=== PATIENT | female | born 1925 | race Caucasian/White ===

== ENCOUNTER 2016-07-09 12:42 | Inpatient (IN) | payer MEDICARE ==
[~2016-07-09] VITALS: Ht 152.4 cm; Wt 54.5 kg
[~2016-07-09 12:42] MED LIST: ASCO500T PO; CALC500T50 PO; DULO60CA44 PO; LEVO50TA PO; MULT-18 PO; RANI150T6 PO
--- NOTE | 2016-07-09 13:20 | RAD ---
Portable chest, 07/09/2016: History: Shortness of breath The heart size and pulmonary vascularity are normal. There is a calcified granuloma in the right lower chest. No acute infiltrates are seen. There is no evidence of pleural fluid. IMPRESSION: No acute cardiopulmonary abnormality is detected.
[2016-07-09 13:49] LABS: BASO % 1 % (0-3); EOS % 2 % (0-3); HEMATOCRIT 34.7 % (36.0-47.0); LYMPH # 1.1 x10^3/uL (1.0-4.8); LYMPH % 26 % (24-48); MEAN CORPUSCULAR HEMOGLOBIN 28 pg (25-35); MEAN CORPUSCULAR HGB CONC 32 g/dL (31-37); MEAN CORPUSCULAR VOLUME 87 fL (79-100); MONO % 7 % (0-9); NEUT % 65 % (31-73); PLATELET COUNT 335 x10^3/uL (140-400); RED BLOOD COUNT 3.98 x10^6/uL (3.50-5.40); RED CELL DISTRIBUTION WIDTH 17.3 % (11.5-14.5); WHITE BLOOD COUNT 4.3 x10^3/uL (4.0-11.0)
[2016-07-09 14:00] LABS: CALCIUM 9.6 mg/dL (8.5-10.1); CREATININE 0.7 mg/dL (0.6-1.0); POTASSIUM 3.7 mmol/L (3.5-5.1)
--- NOTE | 2016-07-09 14:14 | EKG ---
[facility] [address] [place] [address] Test Date: 2016-07-09 Test Time: 13:27:06 Pat Name: ALEX GIL Department: Room: Gender: F Employee Counselor: : [id number] Requested By: NIVIA BRUCE Order Number: [id number] Reading MD: George Guzman Measurements Intervals [place] Rate: 66 P: 52 IN: 180 QRS: -26 QRSD: 114 T: 7 QT: 434 QTc: 457 Interpretive Statements SINUS RHYTHM LEFTWARD AXIS R-S TRANSITION ZONE IN V LEADS DISPLACED TO THE RIGHT QRS(T) CONTOUR ABNORMALITY CONSIDER INFERIOR MYOCARDIAL DAMAGE T ABNORMALITY IN ANTEROSEPTAL LEADS RI6.01 Unconfirmed report No previous ECG available for comparison Electronically Signed On 07-12-2016 13:58:19 PRINT PRODUCER by George Guzman
[2016-07-09] MEDS ORDERED: ACETAMINOPHEN 325 MG TABLET. PO PRN (15:00)
--- NOTE | 2016-07-09 15:00 | PHYS DOC ---
Past Medical History Past Medical History: Hypothyroid Past Surgical History: Other Additional Past Surgical Histo: breast augmentation, colon surgery Alcohol Use: Occasionally Drug Use: None Adult General Chief Complaint Chief Complaint: SHORTNESS OF BREATH HPI HPI 89-year-old female who states she awoke today with some difficulty taking a deep breath but no significant chest pain or shortness of breath. She states she went about her usual activities today without significant difficulty but still has trouble taking a full breath. She states she has history only of hypothyroidism and denies any significant cardiac disease. Patient speaking in complete sentences and in no acute distress satting near 100% on room air. She denies any chest pain whatsoever. She denies any history of blood clots. She denies any history of travel. Review of Systems Review of Systems Constitutional: Denies fever or chills [] Eyes: Denies change in visual acuity, redness, or eye pain [] HENT: Denies nasal congestion or sore throat [] Respiratory: Denies cough, has shortness of breath [] Cardiovascular: No additional information not addressed in HPI [] GI: Denies abdominal pain, nausea, vomiting, bloody stools or diarrhea [] : Denies dysuria or hematuria [] Musculoskeletal: Denies back pain or joint pain [] Integument: Denies rash or skin lesions [] Neurologic: Denies headache, focal weakness or sensory changes [] Endocrine: Denies polyuria or polydipsia [] Current Medications Current Medications Current Medications Medications (Trade) Dose Ordered Sig/Teresa Start Time Stop Time Status Last Admin Dose Admin Acetaminophen (Tylenol) 650 mg PRN Q4HRS PRN 07/09/16 15:00 07/10/16 14:59 Ondansetron HCl (Zofran) 4 mg PRN Q8HRS PRN 07/09/16 15:00 07/10/16 14:59 07/09/16 15:20 4 MG Allergies Allergies Allergies Coded Allergies Type Severity Reaction Last Updated Verified Penicillins Allergy Severe Anaphylaxis 03/17/15 Yes codeine Allergy Severe Anaphylaxis 03/17/15 Yes Physical Exam Physical Exam Constitutional: Well developed, well nourished, no acute distress, non-toxic appearance. [] HENT: Normocephalic, atraumatic, bilateral external ears normal, oropharynx moist, no oral exudates, nose normal. [] Eyes: PERRLA, EOMI, conjunctiva normal, no discharge. [] Neck: Normal range of motion, no tenderness, supple, no stridor. [] Cardiovascular:Heart rate regular rhythm, no murmur [] Lungs & Thorax: Bilateral breath sounds clear to auscultation [] Abdomen: Bowel sounds normal, soft, no tenderness, no masses, no pulsatile masses. [] Skin: Warm, dry, no erythema, no rash. [] Back: No tenderness, no CVA tenderness. [] Extremities: No tenderness, no cyanosis, no clubbing, ROM intact, no edema. [] Neurologic: Alert and oriented X 3, normal motor function, normal sensory function, no focal deficits noted. [] Psychologic: Affect normal, judgement normal, mood normal. [] Current Patient Data Vital Signs Vital Signs Date Time Temp Pulse Resp B/P Pulse Ox O2 Delivery O2 Flow Rate FiO2 07/09/16 14:30 74 16 131/63 94 Room Air 07/09/16 13:00 97.8 97.8 Lab Values Laboratory Tests Test 07/09/16 13:35 White Blood Count 4.3x10^3/uL (4.0-11.0) Red Blood Count 3.98x10^6/uL (3.50-5.40) Hemoglobin 11.0g/dL (12.0-15.5) L Hematocrit 34.7% (36.0-47.0) L Mean Corpuscular Volume 87fL (79-100) Mean Corpuscular Hemoglobin 28pg (25-35) Mean Corpuscular Hemoglobin Concent 32g/dL (31-37) Red Cell Distribution Width 17.3% (11.5-14.5) H Platelet Count 335x10^3/uL (140-400) Neutrophils (%) (Auto) 65% (31-73) Lymphocytes (%) (Auto) 26% (24-48) Monocytes (%) (Auto) 7% (0-9) Eosinophils (%) (Auto) 2% (0-3) Basophils (%) (Auto) 1% (0-3) Neutrophils # (Auto) 2.8x10^3uL (1.8-7.7) Lymphocytes # (Auto) 1.1x10^3/uL (1.0-4.8) Monocytes # (Auto) 0.3x10^3/uL (0.0-1.1) Eosinophils # (Auto) 0.1x10^3/uL (0.0-0.7) Basophils # (Auto) 0.0x10^3/uL (0.0-0.2) D-Dimer (Stephanie) 3.00ug/mlFEU (0.00-0.50) H Sodium Level 144mmol/L (136-145) Potassium Level 3.7mmol/L (3.5-5.1) Chloride Level 105mmol/L (98-107) Carbon Dioxide Level 27mmol/L (21-32) Anion Gap 12 (6-14) Blood Urea Nitrogen 19mg/dL (7-20) Creatinine 0.7mg/dL (0.6-1.0) Estimated GFR (Cockcroft-Gault) 79.0 Glucose Level 103mg/dL (70-99) H Calcium Level 9.6mg/dL (8.5-10.1) Troponin I Quantitative < 0.017ng/mL (0.000-0.055) Laboratory Tests 07/09/16 13:35 Laboratory Tests 07/09/16 13:35 EKG EKG EKG taken upon arrival at 1327 showed a sinus rhythm with a leftward axis and an approximate rate of 66 bpm. There is some mild downsloping ST segments in V2 and V3 as well as S1Q3T3 pattern. Repeat EKG taken at 1524 showed essentially an unchanged EKG with an approximate heart rate of 60 bpm and a sinus rhythm with the findings mentioned previously. Radiology/Procedures Radiology/Procedures Portable one view of the chest demonstrates no acute process as interpreted by pr CTA of the chest demonstrates the following: Multidetector CT imaging was performed following an IV bolus injection of iodinated contrast material. Multiplanar reconstructions were produced including coronal MIP images. The main pulmonary arteries are unremarkable. There is a filling detect defect in the distal aspect of the right middle lobe are pulmonary artery extending into segmental branches. The appearance is that of a nonocclusive thrombus. There is also a small nonocclusive thrombus in a segmental pulmonary artery in the right lower lobe extending into a subsegmental branch. No left-sided pulmonary emboli are identified. There is moderate calcific plaquing of the thoracic aorta without evidence of aneurysm. Scattered coronary artery calcifications are present. There are calcified right hilar nodes. No mediastinal or hilar adenopathy is seen. There is a large hiatal hernia. There is mild bilateral apical pleural-parenchymal scarring. Several calcified granulomata are noted. There are a few small scattered linear opacities in the lungs compatible with scarring and/or atelectasis. No pulmonary mass or significant consolidation is seen. There is no evidence of pleural fluid. A nonobstructing medullary calcification is noted in the upper pole of the left kidney. Bilateral breast implants are in place. Course & Med Decision Making Course & Med Decision Making Pertinent Labs and Imaging studies reviewed. (See chart for details) 89-year-old female with subjective complaint of difficulty taking a deep breath had an EKG that was concerning for possible cardiac cause. Troponin was negative. Chest xray was unrevealing. D-dimer is also elevated and so CT of her chest was obtained that did show a small right-sided pulmonary embolus. These findings were communicated to the admitting hospitalist after the patient was admitted to the floor. I discussed the case with the senior technical architect as well. The hospitalist, Dr. Lehman, agreed to accept the patient for her ongoing symptoms. Upon admission, the patient was in no acute distress and satting near 100% on room air. Dragon Disclaimer Dragon Disclaimer This electronic medical record was generated, in whole or in part, using a voice recognition dictation system. Departure Departure Impression: Primary Impression: Angina effort Disposition: ADMITTED INPATIENT Admitting Physician: Thad Lehman Condition: STABLE Referrals: ESCOBAR MONTGOMERY MD (PCP) NIVIA BRUCE DO Jul 09, 2016 15:00
[2016-07-09] MEDS: ONDANSETRON PF 4 MG/2 ML VIAL. IV PRN (15:20)
[2016-07-09] MEDS ORDERED: CONTRAST GIVEN MC PRN (16:00)
--- NOTE | 2016-07-09 16:13 | PDOC2 ---
CARDIAC CONSULT DATE OF CONSULT Date of Consult DATE: 07/09/16 TIME: 16:02 REASON FOR CONSULT Reason for Consult: Angina REFERRING PHYSICIAN Referring Physician: Vanda SOURCE Source: Chart review, Patient HISTORY OF PRESENT ILLNESS HISTORY OF PRESENT ILLNESS This is a pleasant 89 yo female admitted for complains of SOA. Reports that this morning she woke up unable to catch her breath and take deep breath. There some fullness in her chest but denies any chest pain or pressure. Also had some nausea particularly while in ED and was given zofran for it. When it got a little better this AM she proceeded with her day, went to the [employer] shop and to stores but remains to have this nagging feeling of unable to take deep breath but no significant SOA. This prompted her to come to ED. She told me that she is dizzy all the time. Denies any palpitations, no recent fever, chills , injury or falls. Denies any long distance travels and no prior hx of CAD, VTE. She had syncopal spell remotely. She only takes MVI, calcium and thyroid pill for routine meds as well as PRN zantac. 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 Her last stress test was many yrs ago. PAST MEDICAL HISTORY Cardiovascular: No pertinent hx Pulmonary: No pertinent hx CENTRAL NERVOUS SYSTEM: Other (No pertinent history) GI: GERD Heme/Onc: No pertinent hx Hepatobiliary: No pertinent hx Psych: No pertinent hx Musculoskeletal: Osteoarthritis Rheumatologic: No pertinent hx Infectious disease: No pertinent hx ENT: No pertinent hx Renal/: No pertinent hx Endocrine: Hypothyroidism Dermatology: No pertinent hx PAST SURGICAL HISTORY Past Surgical History: Mastectomy, Other (exploratory laparotomy (not clear reason)) FAMILY HISTORY Family History noncontributory to age SOCIAL HISTORY Smoke: No ALCOHOL: occassional Drugs: None Lives: Alone CURRENT MEDICATIONS CURRENT MEDICATIONS Current Medications Medications (Trade) Dose Ordered Sig/Teresa Route PRN Reason Start Time Stop Time Status Last Admin Dose Admin Ondansetron HCl (Zofran) 4 mg PRN Q8HRS PRN IV NAUSEA/VOMITING 07/09/16 15:00 07/10/16 14:59 07/09/16 15:20 ALLERGIES ALLERGIES: Coded Allergies: Penicillins (Verified Allergy, Severe, Anaphylaxis, 03/17/15) codeine (Verified Allergy, Severe, Anaphylaxis, 03/17/15) ROS Review of System 14 point ROS evaluated with pertinent positives noted per HPI PHYSICAL EXAM General: Alert, Oriented X3, Cooperative, No acute distress HEENT: Atraumatic, Mucous membr. moist/pink Lungs: Clear to auscultation, Normal air movement Heart: Regular rate (RBBB), Normal S1, Normal S2, Other (3/6 systolic murmur to LLS border) Abdomen: No tenderness Extremities: No cyanosis, No edema Skin: No breakdown, No significant lesion Neuro: Normal speech, Sensation intact Psych/Mental Status: Mental status NL, Mood NL MUSCULOSKELETAL: Osteoarthritic changes both hands VITALS VITALS Vital Signs Date Time Temp Pulse Resp B/P Pulse Ox O2 Delivery O2 Flow Rate FiO2 07/09/16 15:25 58 16 134/62 94 Room Air 07/09/16 13:00 97.8 97.8 LABS Lab: Laboratory Tests Test 07/09/16 13:35 White Blood Count 4.3x10^3/uL (4.0-11.0) Red Blood Count 3.98x10^6/uL (3.50-5.40) Hemoglobin 11.0g/dL (12.0-15.5) Hematocrit 34.7% (36.0-47.0) Mean Corpuscular Volume 87fL (79-100) Mean Corpuscular Hemoglobin 28pg (25-35) Mean Corpuscular Hemoglobin Concent 32g/dL (31-37) Red Cell Distribution Width 17.3% (11.5-14.5) Platelet Count 335x10^3/uL (140-400) Neutrophils (%) (Auto) 65% (31-73) Lymphocytes (%) (Auto) 26% (24-48) Monocytes (%) (Auto) 7% (0-9) Eosinophils (%) (Auto) 2% (0-3) Basophils (%) (Auto) 1% (0-3) Neutrophils # (Auto) 2.8x10^3uL (1.8-7.7) Lymphocytes # (Auto) 1.1x10^3/uL (1.0-4.8) Monocytes # (Auto) 0.3x10^3/uL (0.0-1.1) Eosinophils # (Auto) 0.1x10^3/uL (0.0-0.7) Basophils # (Auto) 0.0x10^3/uL (0.0-0.2) D-Dimer (Stephanie) 3.00ug/mlFEU (0.00-0.50) Sodium Level 144mmol/L (136-145) Potassium Level 3.7mmol/L (3.5-5.1) Chloride Level 105mmol/L (98-107) Carbon Dioxide Level 27mmol/L (21-32) Anion Gap 12 (6-14) Blood Urea Nitrogen 19mg/dL (7-20) Creatinine 0.7mg/dL (0.6-1.0) Estimated GFR (Cockcroft-Gault) 79.0 Glucose Level 103mg/dL (70-99) Calcium Level 9.6mg/dL (8.5-10.1) Troponin I Quantitative < 0.017ng/mL (0.000-0.055) ASSESSMENT/PLAN ASSESSMENT/PLAN 1. Dyspnea: elevated DDIMER with EKG RBBB/S1Q3T3 no prior for comparison 2. Hypothyroidism 3. GERD Recommendations 1. CTA chest pending 2. If above is unremarkable then will consider for MPI tomorrow. 3. TTE 4. Lipid panel, TSH 5. GI prophylaxis 6. Start on ASA. Problems: JAMIE BOO APRN Jul 09, 2016 16:13
[2016-07-09] MEDS ORDERED: IOHEXOL 300 MG/ML 75 ML VIAL IV ONE (16:15)
[2016-07-09] MEDS ORDERED: IV 1/2 NORMAL SALINE 1,000 ML IV ONE (16:15)
[2016-07-09 16:30] VITALS: BP 170/70
--- NOTE | 2016-07-09 16:43 | RAD ---
CTA of the chest with contrast, 07/09/2016: History: Chest pain, shortness of breath, possible pulmonary emboli Multidetector CT imaging was performed following an IV bolus injection of iodinated contrast material. Multiplanar reconstructions were produced including coronal MIP images. The main pulmonary arteries are unremarkable. There is a filling detect defect in the distal aspect of the right middle lobe are pulmonary artery extending into segmental branches. The appearance is that of a nonocclusive thrombus. There is also a small nonocclusive thrombus in a segmental pulmonary artery in the right lower lobe extending into a subsegmental branch. No left-sided pulmonary emboli are identified. There is moderate calcific plaquing of the thoracic aorta without evidence of aneurysm. Scattered coronary artery calcifications are present. There are calcified right hilar nodes. No mediastinal or hilar adenopathy is seen. There is a large hiatal hernia. There is mild bilateral apical pleural-parenchymal scarring. Several calcified granulomata are noted. There are a few small scattered linear opacities in the lungs compatible with scarring and/or atelectasis. No pulmonary mass or significant consolidation is seen. There is no evidence of pleural fluid. A nonobstructing medullary calcification is noted in the upper pole of the left kidney. Bilateral breast implants are in place. IMPRESSION: 1. Small right-sided pulmonary emboli. 2. Moderate calcific plaquing of the aorta and coronary arteries. 3. Large hiatal hernia. Note: The this critical finding was called to the patient's nurse on the floor at 4:39 PM on 07/09/2016. PQRS Compliance Statement: One or more of the following individualized dose reduction techniques were utilized for this examination: 1. Automated exposure control 2. Adjustment of the mA and/or kV according to patient size 3. Use of iterative reconstruction technique
--- NOTE | 2016-07-09 16:44 | ACF ---
Admission Forms Criteria CARDIOLOGY GRG Clinical Indications for Admission to Inpatient Care ( Place 'X' for any and all applicable criteria): Hospital admission is needed for appropriate care of the patient because of ANY ONE of the following (1): [ ] I. Hemodynamic instability as indicated by ALL of the following (1)(2)(3) (4)(5) [ ]a) Vital signs or other findings not as expected for chronic patient condition or baseline [ ]b) Instability indicated by ANY ONE of the following: [ ]i) Hypotension [ ]ii) Symptomatic Tachycardia unresponsive to treatment ( e.g., analgesia, fluids, sedation as indicated) [ ]iii) Inadequate perfusion indicated by ANY ONE of the following: [ ] 1) Lactic acidosis (> 2 mmol/L) [ ] 2) New abnormal capillary refill (> 3 seconds) [ ] 3) Reduced urine output [ ] 4) New altered mental status [ ]iv) Orthostatic vital sign changes unresponsive to treatment (e.g., fluids) [ ]v) IV inotropic or vasopressor medication required to maintain adequate blood pressure or perfusion [ ] II. Severe heart failure as indicated by ANY ONE of the following(17)(18) [ ]a) Respiratory distress [ ]b) Hypotension [ ]c) Anasarca (refractory to outpatient therapy) [ ]d) Cardiac arrhythmias of immediate concern [ ]e) Myocardial ischemia [ ] III. Cardiac arrhythmias or findings of immediate concern indicated by ANY ONE of the following (19)(20): [ ] a) Heart rhythms that are inherently dangerous or unstable indicated by ANY ONE of the following (21)(22)(23): [ ] i) Resuscitated ventricular fibrillation or cardiac arrest [ ] ii) Ventricular escape rhythm [ ] iii) Sustained ventricular tachycardia (30 seconds or more of ventricular rhythm at greater than 100 beats per minute) [ ] iv) Nonsustained ventricular tachycardia and ANY ONE of the following: [ ] 1) Suspected cardiac ischemia as cause or consequence of ventricular tachycardia [ ] 2) In setting of acute myocarditis [ ] b) Unstable cardiac conduction defects indicated by ANY ONE of the following(23)(24)(25) [ ] i) Type II second-degree atrioventricular block [ ]ii) Third-degree atrioventricular block [ ]iii) New-onset left bundle branch block with suspected myocardial ischemia [ ]c) Any heart rhythm and ANY ONE of the following (21)(22)(26)(27) (28) [ ] i) Continuous long-term ECG monitoring needed (e.g., initiation of drug requiring monitoring for more than 24 hours) [ ] ii) Patient has automatic implanted cardioverter defibrillator that is repeatedly firing, malfunctioning, or in need of immediate adjustment of settings beyond the scope of ambulatory or observation care [ ]d) Heart rhythms of concern due to ANY ONE of the following: [ ] i) Hypotension [ ] ii) Respiratory distress [ ] iii) Association with other significant symptoms (e.g., bradycardia with syncope or ongoing dizziness, supraventricular tachycardia with chest pain (14)(15)(17) [ ] IV. Monitoring for cardiac contusion beyond the scope of observation care needed [A](30)(31)(32) [ ] V. Surgical or device complication (e.g., valve replacement complication , pacemaker dysfunction) (35)(41)(44)(45)(46) [ ] . Inpatient palliative care needed. [B](49) Also use Inpatient Palliative Care Criteria [ ] VII. Nonbacterial thrombotic (marantic) endocarditis (36)(43)(47)(48) [X] VIII. Cardiology condition, symptom, or finding for which emergency and observation care has failed or are not considered appropriate. [ ] IX. Acute valvular disease requiring inpatient as indicated by ANY ONE of the following (41) [ ]a) Acute valvular regurgitation (42) [ ]b) Noninfectious valvulitis (43) [ ]c) Obstructive valve thrombosis [ ]d) Paravalvular leak [ ]e) Other significant valvular disorder remaining after emergency or observation level of care (as appropriate) [ ]X. Pericardial disease requiring inpatient treatment as indicated by ANY ONE of the following (33)(34)(35)(36)(37) [ ]a) Suspected tamponade (38)(39)(40) [ ]b) Hemopericardium [ ]c) Other significant pericardial disorder remaining after emergency or observation level of care (as appropriate) [ ] XI. Cardiac ischemia beyond scope of emergency and observation care. [ ] XII. Hypertension requiring inpatient treatment as indicated by ANY ONE of the following (6)(7)(8) [ ]a) SBP greater than 220 mm Hg or DBP greater than 120 mmHg despite treatment [ ]b) SBP greater than 140 mm Hg or DBP greater than 100 mm Hg with evidence of acute end organ damage as indicated by ANY ONE of the following [ ] i) Encephalopathy [ ] ii) Acute renal failure as indicated by new onset of ANY ONE of the following (9)(10)(11)(12)(13) [ ]1) 3-fold rise in serum creatinine from baseline [ ]2) Serum creatinine greater than 4 mg/dL ( 354 micromoles/L) with acute rise greater than 0.5 mg/dL (44.2 micromoles/L) [ ]3) Reduction of more than 75% in estimated glomerular filtration rate from baseline [ ]4) Estimated glomerular filtration rate less than 35 mL/min/1.73m2 (0.59 mL/sec/1.73m2) in child up to 18 years of age [ ]5) Cessation of urine output indicated by ALL of the following [ ]A. Adequate volume status [ ]B. Inadequate urine output as indicated by ANY ONE of the following [ ]a. Urine output less than 0.3 mL/kg/hr for 24 hours [ ]b. Anuria (urine output less than 0.1 mL/kg/hr) for 12 hours [ ] iii) Aortic dissection [ ] iv) Myocardial Ischemia [ ] v) Left ventricular heart failure [ ]vi) Retinal Hemorrhage [ ]vii) Other significant finding [ ]c) Hypertension in child requiring inpatient treatment as indicated by ALL of the following(14)(15)(16) [ ] i) Outpatient treatment not effective, not available, or not appropriate [ ]ii) SBP or DBP greater than 95th percentile for age [ ]iii) Evidence of acute end organ damage as indicated by ANY ONE of the following [ ]1) Altered mental status [ ]2) Acute renal failure as indicated by new onset of ANY ONE of the following(9)(10)(11)(12)(13) [ ]A. 3-fold rise in serum creatinine from baseline [ ]B. Serum creatinine greater than 4 mg/dL (354 micromoles/L) with acute rise greater than 0.5 mg/dL (44.2 micromoles/L) [ ]C. Reduction of more than 75% in estimated glomerular filtration rate from baseline [ ]D. Estimated glomerular filtration rate less than 35 mL/min/1.73m2 (0.59 mL/sec/1.73m2) in child up to 18 years of age [ ]E. Cessation of urine output indicated by ALL of the following [ ]a. Adequate volume status [ ]b. Inadequate urine output as indicated by ANY ONE of the following [ ]i) Urine output less than 0.3 mL/kg/hr for 24 hours [ ]ii) Anuria ( urine output less than 0.1 mL/kg/hr) for 12 hours [ ]3) Severe headache [ ]4) Visual disturbance [ ]5) Retinal hemorrhage [ ]6) Other significant finding [ ]XIII. Complications of transplanted heart indicated by ANY ONE of the following(61): [ ]a) Acute graft rejection requiring inpatient management (eg, intravenous immunosuppression)(62)(63) [ ]b) Acute graft heart failure indicated by ANY ONE of the following(64): [ ]i) Hemodynamic instability [ ]ii) Cardiac arrhythmias of immediate concern [ ]iii) Pulmonary edema that is very severe (eg, mechanical ventilation needed, imminent or likely, need for 100% oxygen to keep oxygen saturation above 90%) [ ]iv) Pulmonary edema that is persistent as indicated by ALL of the following: [ ]1) New need for oxygen therapy to keep oxygen saturation above 90% (or increased FiO2 need from baseline) [ ]2) Has not improved sufficiently with emergency department or observation care IV diuretics or other heart failure treatments[E] [ ]v) Altered mental status that is severe or persistent [ ]vi) Increased creatinine (new on laboratory test) with reduction of more than 50% in estimated glomerular filtration rate from baseline [ ]vii) Progressively (ongoing) rising creatinine (known from past laboratory test) with reduction of more than 25% in estimated glomerular filtration rate from baseline [ ]viii) Acute renal failure [ ]ix) Acute peripheral ischemia (eg, examination shows pulseless, cool, mottled, or cyanotic extremity) [ ]x) Pulmonary artery catheter monitoring needed [ ]xi) Other sign or symptom of heart failure requiring inpatient treatment (ie, too severe or not responsive to outpatient and observation care treatment) [ ]c) Infection requiring inpatient management (eg, Hemodynamic instability, need for intravenous antimicrobial treatment)(66)(67)(68)(69)(70) [ ]d) Cardiac allograft vasculopathy requiring inpatient management ( eg evidence of cardiac ischemia)(71) [ ]e) Other complication of transplanted heart (eg, stroke, severe pulmonary hypertension, severe valvular dysfunction) requiring inpatient management(72) The original [facility] content created by [facility] has been revised. The portions of the content which have been revised are identified through the use of italic text or in bold, and [facility] has neither reviewed nor approved the modified material. All other unmodified content is copyright [facility]. Please see references footnoted in the original [facility] edition 2016 Admission Criteria Met?: Yes DAVID LANIER Jul 09, 2016 16:44
[2016-07-09] MEDS ORDERED: ENOXAPARIN 40 MG/0.4 ML DISP.SYRIN. SQ SCH (18:00)
[2016-07-09] MEDS ORDERED: BUPR150T15 PO (18:15)
[2016-07-09] MEDS ORDERED: ASPI81TA2 PO (18:15)
[2016-07-09] MEDS ORDERED: LEVO50TA5 PO (18:15)
[2016-07-09] MEDS ORDERED: ESCI10TA PO (18:15)
[2016-07-09] MEDS ORDERED: TRAZ100T12 PO (18:15)
[2016-07-09] MEDS ORDERED: ROPI0.5T PO (18:15)
[2016-07-09] MEDS ORDERED: TRAM50TA PO (18:15)
[2016-07-09 19:05] VITALS: BP 136/60
[2016-07-09] MEDS ORDERED: ATOR40TA59 PO (19:10)
[2016-07-09] MEDS: rOPINIRole 0.25 MG TABLET. PO SCH (20:58)
[2016-07-09] MEDS: TRAMADOL 50 MG TABLET. PO PRN ×3 (20:58→22:04)
[2016-07-09] MEDS: FAMOTIDINE 20 MG TABLET. PO SCH (20:58)
[2016-07-09] MEDS: traZODone 100 MG TABLET. PO SCH (21:02)
--- NOTE | 2016-07-09 21:52 | HP ---
ADMIT DATE: 07/09/2016 CHIEF COMPLAINT: Shortness of breath, chest pressure, nausea. HISTORY OF PRESENT ILLNESS: The patient is a pleasant 89-year-old female who appears younger than her stated age. She presents with the above chief complaints. Basically, she woke up this morning with short of breath, could not take a deep breath. She had some fullness in her chest. She also developed some nausea while here in our emergency Room. It should be noted that she did try to use some [id number] medicines. She actually got up and went to the store this morning, but just was feeling terrible. Initial evaluation in the ER was suspicious for possible angina. We did just do a CT of the chest to rule out pulmonary embolism and she indeed does have pulmonary embolism in the right lung. We are going to admit the patient, start anticoagulation and consult Pulmonary Medicine and Cardiology. PAST MEDICAL HISTORY: Depression, anxiety, hypothyroidism, restless legs, arthritis, breast augmentation. ALLERGIES: PENICILLIN, CODEINE. FAMILY HISTORY: Hypertension. SOCIAL HISTORY: She does not drink, smoke or take drugs. MEDICATIONS: Reviewed, please refer to the MRAD. REVIEW OF SYSTEMS: GENERAL: No history of weight change, weakness or fevers. SKIN: No bruising, hair changes or rashes. EYES: No blurred, double or loss of vision. NOSE AND THROAT: No history of nosebleeds, hoarseness or sore throat. HEART: She complains of chest pressure. LUNGS: She complains of shortness of breath. GASTROINTESTINAL: Denies changes in appetite, nausea, vomiting, diarrhea or constipation. GENITOURINARY: No history of frequency, urgency, hesitancy or nocturia. NEUROLOGIC: Denies history of numbness, tingling, tremor or weakness. PSYCHIATRIC: No history of panic, anxiety or depression. ENDOCRINE: No history of heat or cold intolerance, polyuria or polydipsia. EXTREMITIES: Denies muscle weakness, joint pain, pain on walking or stiffness. PHYSICAL EXAMINATION: VITAL SIGNS: Temperature afebrile, pulse 97, respirations 20, blood pressure 170/70. GENERAL: She is alert, cooperative. Her son is present. HEART: Normal S1, S2. LUNGS: Diminished but clear. ABDOMEN: Soft, positive bowel sounds. EXTREMITIES: Trace edema. SKIN: No rashes. PSYCHIATRIC: She is stable. VASCULAR: Good capillary refill. ENDOCRINE: No thyromegaly. LYMPHATICS: No cervical nodes. HEMATOPOIETIC: No bruising. LABORATORY DATA: White count 4, hemoglobin 11, platelets 335. Electrolytes normal. Troponin was 0. D-dimer is 3.[address] of the chest shows pulmonary embolism in the right lung. EKG shows a right bundle branch block. ASSESSMENT AND PLAN: Pulmonary embolism. The patient has been admitted. We are starting Lovenox 1 mg/kg subQ q. 12. Daily labs. We will probably need Coumadin 5 mg p.o. every day unless pulmonary would like to use one of the newer drugs. Resume her home medicines, cardiac monitoring. PROGNOSIS: Guarded. EL GARCIA DO DR: HALLE/ej JOB#: [id number] / [id number]
[2016-07-09 23:40] VITALS: BP 85/45
[2016-07-10 03:05] VITALS: BP 105/52
[2016-07-10] MEDS: LEVOTHYROXINE 50 MCG TABLET PO SCH (06:43)
[2016-07-10 07:00] VITALS: BP 122/55
[2016-07-10] MEDS ORDERED: LEVOTHYROXINE 50 MCG TABLET PO SCH (07:30)
[2016-07-10 07:43] LABS: INR 1.1 (0.8-1.1); PROTHROMBIN TIME PATIENT 13.2 SEC (11.7-14.0)
[2016-07-10] MEDS ORDERED: ASPIRIN 81 MG TAB.CHEW PO SCH (08:00)
--- NOTE | 2016-07-10 08:23 | RAD ---
Examination: Bilateral Lower Extremity Venous Doppler Ultrasound: Indication: Bilateral lower extremity swelling, tightness. Comparison: None. Procedure: Color flow, duplex and 2D images are obtained with and without compression in the area of the common femoral vein, superficial femoral vein - femoral vein junction, main femoral vein (superficial femoral vein) and popliteal vein. Veins of the proximal calf are also imaged. Findings: There is normal duplex flow, color flow and compressibility of all visualized vein segments. No evidence of deep venous thrombus is present. Impression: No evidence of DVT in the visualized bilateral lower extremity venous system.
[2016-07-10] MEDS ORDERED: ENOXAPARIN ** NOTE DOSE ** SYRINGE SQ ONE (08:45)
[2016-07-10] MEDS: buPROPion XL 150 MG TAB.ER.24H PO SCH (08:54)
[2016-07-10] MEDS: ASPIRIN ENTERIC COATED 81 MG TABLET.DR. PO SCH (08:54)
[2016-07-10] MEDS: ESCITALOPRAM 10 MG TABLET. PO SCH (08:54)
[2016-07-10] MEDS: rOPINIRole 0.25 MG TABLET. PO SCH ×2 (09:34→21:48)
--- NOTE | 2016-07-10 10:26 | EKG ---
[facility] [address] [place] [address] Test Date: 2016-07-09 Test Time: 15:24:53 Pat Name: ALEX GIL Department: Room: 202 1 Gender: F Miller Head: : [id number] Requested By: NIVIA BRUCE Order Number: [id number] Reading MD: George Guzman Measurements Intervals Howard Rate: 60 P: 47 KS: 188 QRS: -28 QRSD: 124 T: 6 QT: 460 QTc: 460 Interpretive Statements SINUS RHYTHM LEFTWARD AXIS RIGHT BUNDLE BRANCH BLOCK NONSPECIFIC ST-T WAVE CHANGES. RI6.01 Unconfirmed report No previous ECG available for comparison Electronically Signed On 07-12-2016 13:59:32 FINANCE CONSULTANT by George Guzman
--- NOTE | 2016-07-10 10:54 | PDOC ---
PROGRESS NOTES Chief Complaint Chief Complaint - Pulmonary Embolism - Hypothyroidism - Arthritis - Depression History of Present Illness History of Present Illness Patient was lying in her bed, was awake, alert, oriented, and in no acute distress, no pain in chest reported, no overnight acute event reported. Family was present at bedside, plan of care was discussed with family, RN and patient and they showed their understanding to it. Vitals Vitals Vital Signs Date Time Temp Pulse Resp B/P Pulse Ox O2 Delivery O2 Flow Rate FiO2 07/10/16 08:00 Room Air 07/10/16 07:00 98.0 75 17 122/55 94 98.0 Physical Exam General: Alert, Oriented X3, Cooperative, No acute distress Heart: Regular rate (RBBB), Normal S1, Normal S2, Other (3/6 systolic murmur to LLS border) Abdomen: No tenderness Extremities: No cyanosis, No edema Skin: No breakdown, No significant lesion Labs LABS Laboratory Tests Test 07/09/16 13:35 07/09/16 21:15 07/10/16 03:15 07/10/16 07:10 White Blood Count 4.3x10^3/uL (4.0-11.0) Red Blood Count 3.98x10^6/uL (3.50-5.40) Hemoglobin 11.0g/dL (12.0-15.5) Hematocrit 34.7% (36.0-47.0) Mean Corpuscular Volume 87fL (79-100) Mean Corpuscular Hemoglobin 28pg (25-35) Mean Corpuscular Hemoglobin Concent 32g/dL (31-37) Red Cell Distribution Width 17.3% (11.5-14.5) Platelet Count 335x10^3/uL (140-400) Neutrophils (%) (Auto) 65% (31-73) Lymphocytes (%) (Auto) 26% (24-48) Monocytes (%) (Auto) 7% (0-9) Eosinophils (%) (Auto) 2% (0-3) Basophils (%) (Auto) 1% (0-3) Neutrophils # (Auto) 2.8x10^3uL (1.8-7.7) Lymphocytes # (Auto) 1.1x10^3/uL (1.0-4.8) Monocytes # (Auto) 0.3x10^3/uL (0.0-1.1) Eosinophils # (Auto) 0.1x10^3/uL (0.0-0.7) Basophils # (Auto) 0.0x10^3/uL (0.0-0.2) D-Dimer (Stephanie) 3.00ug/mlFEU (0.00-0.50) Sodium Level 144mmol/L (136-145) Potassium Level 3.7mmol/L (3.5-5.1) Chloride Level 105mmol/L (98-107) Carbon Dioxide Level 27mmol/L (21-32) Anion Gap 12 (6-14) Blood Urea Nitrogen 19mg/dL (7-20) Creatinine 0.7mg/dL (0.6-1.0) Estimated GFR (Cockcroft-Gault) 79.0 Glucose Level 103mg/dL (70-99) Calcium Level 9.6mg/dL (8.5-10.1) Troponin I Quantitative < 0.017ng/mL (0.000-0.055) < 0.017ng/mL (0.000-0.055) < 0.017ng/mL (0.000-0.055) Prothrombin Time 13.2SEC (11.7-14.0) Prothromb Time International Ratio 1.1 (0.8-1.1) Review of Systems Review of Systems Awake, alert, oriented, afebrile, no SOB and CP, breathing comfortably at room air, leg stocking present, pt. was in no acute distress. Assessment and Plan Assessmemt and Plan ASSESSMENT: - Pulmonary Embolism - Hypothyroidism - Arthritis PLAN: - Continue care per floor protocol - Continue cardiac monitoring - Continue lovenox - recheck labs in AM - appreciate subspecialties input and recommendations Problems Medical Problems: (1) Angina effort Status: Acute Problems: Comment Review of Relevant I have reviewed the following items jesús (where applicable) has been applied. Labs Laboratory Tests Test 07/09/16 13:35 07/09/16 21:15 07/10/16 03:15 07/10/16 07:10 White Blood Count 4.3x10^3/uL (4.0-11.0) Red Blood Count 3.98x10^6/uL (3.50-5.40) Hemoglobin 11.0g/dL (12.0-15.5) Hematocrit 34.7% (36.0-47.0) Mean Corpuscular Volume 87fL (79-100) Mean Corpuscular Hemoglobin 28pg (25-35) Mean Corpuscular Hemoglobin Concent 32g/dL (31-37) Red Cell Distribution Width 17.3% (11.5-14.5) Platelet Count 335x10^3/uL (140-400) Neutrophils (%) (Auto) 65% (31-73) Lymphocytes (%) (Auto) 26% (24-48) Monocytes (%) (Auto) 7% (0-9) Eosinophils (%) (Auto) 2% (0-3) Basophils (%) (Auto) 1% (0-3) Neutrophils # (Auto) 2.8x10^3uL (1.8-7.7) Lymphocytes # (Auto) 1.1x10^3/uL (1.0-4.8) Monocytes # (Auto) 0.3x10^3/uL (0.0-1.1) Eosinophils # (Auto) 0.1x10^3/uL (0.0-0.7) Basophils # (Auto) 0.0x10^3/uL (0.0-0.2) D-Dimer (Stephanie) 3.00ug/mlFEU (0.00-0.50) Sodium Level 144mmol/L (136-145) Potassium Level 3.7mmol/L (3.5-5.1) Chloride Level 105mmol/L (98-107) Carbon Dioxide Level 27mmol/L (21-32) Anion Gap 12 (6-14) Blood Urea Nitrogen 19mg/dL (7-20) Creatinine 0.7mg/dL (0.6-1.0) Estimated GFR (Cockcroft-Gault) 79.0 Glucose Level 103mg/dL (70-99) Calcium Level 9.6mg/dL (8.5-10.1) Troponin I Quantitative < 0.017ng/mL (0.000-0.055) < 0.017ng/mL (0.000-0.055) < 0.017ng/mL (0.000-0.055) Prothrombin Time 13.2SEC (11.7-14.0) Prothromb Time International Ratio 1.1 (0.8-1.1) Laboratory Tests Test 07/09/16 13:35 07/09/16 21:15 07/10/16 03:15 07/10/16 07:10 White Blood Count 4.3x10^3/uL (4.0-11.0) Red Blood Count 3.98x10^6/uL (3.50-5.40) Hemoglobin 11.0g/dL (12.0-15.5) Hematocrit 34.7% (36.0-47.0) Mean Corpuscular Volume 87fL (79-100) Mean Corpuscular Hemoglobin 28pg (25-35) Mean Corpuscular Hemoglobin Concent 32g/dL (31-37) Red Cell Distribution Width 17.3% (11.5-14.5) Platelet Count 335x10^3/uL (140-400) Neutrophils (%) (Auto) 65% (31-73) Lymphocytes (%) (Auto) 26% (24-48) Monocytes (%) (Auto) 7% (0-9) Eosinophils (%) (Auto) 2% (0-3) Basophils (%) (Auto) 1% (0-3) Neutrophils # (Auto) 2.8x10^3uL (1.8-7.7) Lymphocytes # (Auto) 1.1x10^3/uL (1.0-4.8) Monocytes # (Auto) 0.3x10^3/uL (0.0-1.1) Eosinophils # (Auto) 0.1x10^3/uL (0.0-0.7) Basophils # (Auto) 0.0x10^3/uL (0.0-0.2) D-Dimer (Stephanie) 3.00ug/mlFEU (0.00-0.50) Sodium Level 144mmol/L (136-145) Potassium Level 3.7mmol/L (3.5-5.1) Chloride Level 105mmol/L (98-107) Carbon Dioxide Level 27mmol/L (21-32) Anion Gap 12 (6-14) Blood Urea Nitrogen 19mg/dL (7-20) Creatinine 0.7mg/dL (0.6-1.0) Estimated GFR (Cockcroft-Gault) 79.0 Glucose Level 103mg/dL (70-99) Calcium Level 9.6mg/dL (8.5-10.1) Troponin I Quantitative < 0.017ng/mL (0.000-0.055) < 0.017ng/mL (0.000-0.055) < 0.017ng/mL (0.000-0.055) Prothrombin Time 13.2SEC (11.7-14.0) Prothromb Time International Ratio 1.1 (0.8-1.1) Medications Current Medications Ondansetron HCl (Zofran) 4 mg PRN Q8HRS PRN IV NAUSEA/VOMITING Last administered on 07/09/16 15:20; Start 07/09/16 at 15:00; Stop 07/10/16 at 14:59 Acetaminophen (Tylenol) 650 mg PRN Q4HRS PRN PO FEVER; Start 07/09/16 at 15:00; Stop 07/10/16 at 14:59 Iohexol (Omnipaque 300 Mg/ml) 75 ml 1X ONCE IV Last administered on 07/09/16 16:04; Start 07/09/16 at 16:15; Stop 07/09/16 at 16:16; Status DC Info (Do NOT chart on this entry -- for MONITORING) 1 each PRN DAILY PRN MC SEE COMMENTS; Start 07/09/16 at 16:00; Stop 07/11/16 at 15:59 Aspirin 81 mg 81 mg DAILYWBKFT PO Last administered on 07/10/16 08:54; Start at 08:00 Sodium Chloride (Iv Sodium Chloride 0.45%) 1,000 ml @ 75 mls/hr 1X ONCE IV Last administered on 07/09/16 18:38; Start 07/09/16 at 16:15; Stop 07/09/16 at 20: 18; Status DC Famotidine (Pepcid) 20 mg QHS PO Last administered on 07/09/16 20:58; Start 07/09/16 at 21:00 Enoxaparin Sodium (Lovenox 40mg Syringe) 40 mg Q24H SQ Last administered on 07/09 18:38; Start 07/09/16 at 18:00 Aspirin (Children'S Aspirin) 81 mg DAILYWBKFT PO ; Start 07/10/16 at 08:00 Bupropion HCl (Wellbutrin Xl) 150 mg DAILY PO Last administered on 07/10/16 08: 54; Start 07/10/16 at 09:00 Escitalopram Oxalate (Lexapro) 10 mg DAILY PO Last administered on 07/10/16 08: 54; Start 07/10/16 at 09:00 Levothyroxine Sodium (Synthroid) 50 mcg DAILYAC PO ; Start 07/10/16 at 07:30; Status UNV Levothyroxine Sodium (Synthroid) 50 mcg DAILY07 PO Last administered on 06:43; Start 07/10/16 at 07:00 Tramadol HCl (Ultram) 50 mg PRN Q8HRS PRN PO PAIN Last administered on 20:59; Start 07/09/16 at 19:15 Trazodone HCl (Desyrel) 100 mg HS PO Last administered on 07/09/16 21:02; Start 07/09/16 at 21:00 Ropinirole HCl (Requip) 0.5 mg BID PO Last administered on 07/10/16 09:34; Start 07/09/16 at 21:00 Enoxaparin Sodium (Lovenox 60mg Syringe) 60 mg 1X ONCE SQ Last administered on 07/10/16 09:34; Start 07/10/16 at 08:45; Stop 07/10/16 at 08:46; Status DC Active Scripts Active Reported Atorvastatin Calcium 40 Mg Tablet 40 Mg PO HS Escitalopram Oxalate 10 Mg Tablet 10 Mg PO DAILY Wellbutrin Xl (Bupropion Hcl) 150 Mg Tab.er.24h 150 Mg PO DAILY Trazodone Hcl 100 Mg Tablet 100 Mg PO HS Tramadol Hcl 50 Mg Tablet 50 Mg PO PRN Q8HRS PRN Requip (Ropinirole Hcl) 0.5 Mg Tablet 0.5 Mg PO BID Levothyroxine Sodium 50 Mcg Tablet 50 Mcg PO DAILYAC Aspirin 81 Mg Tab.chew 81 Mg PO DAILY Synthroid (Levothyroxine Sodium) 50 Mcg Tablet 50 Mcg PO Vitals/I & O Vital Sign - Last 24 Hours 07/09/16 07/09/16 07/09/16 07/09/16 13:00 13:30 14:30 15:25 Temp 97.8 97.8 Pulse 80 64 74 58 Resp 18 16 16 B/P 161/71 142/64 131/63 134/62 Pulse Ox 96 94 94 94 O2 Delivery Room Air Room Air Room Air Room Air 07/09/16 07/09/16 07/09/16 07/09/16 16:30 17:30 19:05 19:54 Temp 97.7 98.0 97.7 98.0 Pulse 66 63 Resp 18 16 B/P 170/70 136/60 Pulse Ox 97 97 O2 Delivery Room Air Room Air Room Air Room Air 07/09/16 07/09/16 07/09/16 07/09/16 20:58 20:59 22:00 23:40 Temp 98.4 98.4 Pulse 57 Resp 16 16 12 B/P 85/45 Pulse Ox 97 96 O2 Delivery Room Air Room Air Room Air Room Air 07/10/16 07/10/16 07/10/16 03:05 07:00 08:00 Temp 98.6 98.0 98.6 98.0 Pulse 63 75 Resp 14 17 B/P 105/52 122/55 Pulse Ox 96 94 O2 Delivery Room Air Room Air Room Air Intake and Output 07/09/16 07/09/16 07/10/16 15:00 23:00 07:00 Intake Total 300 ml Balance 300 ml EL GARCIA III DO Jul 10, 2016 10:54
[2016-07-10 11:00] VITALS: BP 118/66
--- NOTE | 2016-07-10 11:57 | PDOC ---
PROGRESS NOTES Subjective Subjective Patient seen and examined The patient is comfortable in bed. Objective Objective Vital Signs Date Time Temp Pulse Resp B/P Pulse Ox O2 Delivery O2 Flow Rate FiO2 07/10/16 11:00 97.9 74 17 118/66 95 Room Air 97.9 Intake and Output 07/10/16 07:00 Intake Total 300 ml Balance 300 ml Intake Oral 300 ml # Voids 2 Physical Exam Abdomen: Normal bowel sounds Heart: Regular rate General: No acute distress HEENT: Atraumatic Lungs: Clear to auscultation Assessment Assessment Prob ASSESSMENT/PLAN 1. Dyspnea: elevated DDIMER CT scan of the chest confirms pulmonary emboli. Patient is clinically improved. Continue anticoagulation as per the primary service. Echocardiogram pending. 2. Hypothyroidism 3. GERD Comment Review of Relevant I have reviewed the following items jesús (where applicable) has been applied. Labs Laboratory Tests Test 07/09/16 13:35 07/09/16 21:15 07/10/16 03:15 07/10/16 07:10 White Blood Count 4.3x10^3/uL (4.0-11.0) Red Blood Count 3.98x10^6/uL (3.50-5.40) Hemoglobin 11.0g/dL (12.0-15.5) Hematocrit 34.7% (36.0-47.0) Mean Corpuscular Volume 87fL (79-100) Mean Corpuscular Hemoglobin 28pg (25-35) Mean Corpuscular Hemoglobin Concent 32g/dL (31-37) Red Cell Distribution Width 17.3% (11.5-14.5) Platelet Count 335x10^3/uL (140-400) Neutrophils (%) (Auto) 65% (31-73) Lymphocytes (%) (Auto) 26% (24-48) Monocytes (%) (Auto) 7% (0-9) Eosinophils (%) (Auto) 2% (0-3) Basophils (%) (Auto) 1% (0-3) Neutrophils # (Auto) 2.8x10^3uL (1.8-7.7) Lymphocytes # (Auto) 1.1x10^3/uL (1.0-4.8) Monocytes # (Auto) 0.3x10^3/uL (0.0-1.1) Eosinophils # (Auto) 0.1x10^3/uL (0.0-0.7) Basophils # (Auto) 0.0x10^3/uL (0.0-0.2) D-Dimer (Stephanie) 3.00ug/mlFEU (0.00-0.50) Sodium Level 144mmol/L (136-145) Potassium Level 3.7mmol/L (3.5-5.1) Chloride Level 105mmol/L (98-107) Carbon Dioxide Level 27mmol/L (21-32) Anion Gap 12 (6-14) Blood Urea Nitrogen 19mg/dL (7-20) Creatinine 0.7mg/dL (0.6-1.0) Estimated GFR (Cockcroft-Gault) 79.0 Glucose Level 103mg/dL (70-99) Calcium Level 9.6mg/dL (8.5-10.1) Troponin I Quantitative < 0.017ng/mL (0.000-0.055) < 0.017ng/mL (0.000-0.055) < 0.017ng/mL (0.000-0.055) Prothrombin Time 13.2SEC (11.7-14.0) Prothromb Time International Ratio 1.1 (0.8-1.1) Laboratory Tests Test 07/09/16 13:35 07/09/16 21:15 07/10/16 03:15 07/10/16 07:10 White Blood Count 4.3x10^3/uL (4.0-11.0) Red Blood Count 3.98x10^6/uL (3.50-5.40) Hemoglobin 11.0g/dL (12.0-15.5) Hematocrit 34.7% (36.0-47.0) Mean Corpuscular Volume 87fL (79-100) Mean Corpuscular Hemoglobin 28pg (25-35) Mean Corpuscular Hemoglobin Concent 32g/dL (31-37) Red Cell Distribution Width 17.3% (11.5-14.5) Platelet Count 335x10^3/uL (140-400) Neutrophils (%) (Auto) 65% (31-73) Lymphocytes (%) (Auto) 26% (24-48) Monocytes (%) (Auto) 7% (0-9) Eosinophils (%) (Auto) 2% (0-3) Basophils (%) (Auto) 1% (0-3) Neutrophils # (Auto) 2.8x10^3uL (1.8-7.7) Lymphocytes # (Auto) 1.1x10^3/uL (1.0-4.8) Monocytes # (Auto) 0.3x10^3/uL (0.0-1.1) Eosinophils # (Auto) 0.1x10^3/uL (0.0-0.7) Basophils # (Auto) 0.0x10^3/uL (0.0-0.2) D-Dimer (Stephanie) 3.00ug/mlFEU (0.00-0.50) Sodium Level 144mmol/L (136-145) Potassium Level 3.7mmol/L (3.5-5.1) Chloride Level 105mmol/L (98-107) Carbon Dioxide Level 27mmol/L (21-32) Anion Gap 12 (6-14) Blood Urea Nitrogen 19mg/dL (7-20) Creatinine 0.7mg/dL (0.6-1.0) Estimated GFR (Cockcroft-Gault) 79.0 Glucose Level 103mg/dL (70-99) Calcium Level 9.6mg/dL (8.5-10.1) Troponin I Quantitative < 0.017ng/mL (0.000-0.055) < 0.017ng/mL (0.000-0.055) < 0.017ng/mL (0.000-0.055) Prothrombin Time 13.2SEC (11.7-14.0) Prothromb Time International Ratio 1.1 (0.8-1.1) Medications Current Medications Ondansetron HCl (Zofran) 4 mg PRN Q8HRS PRN IV NAUSEA/VOMITING Last administered on 07/09/16t 15:20; Start 07/09/16 at 15:00; Stop 07/10/16 at 14:59 Acetaminophen (Tylenol) 650 mg PRN Q4HRS PRN PO FEVER; Start 07/09/16 at 15:00; Stop 07/10/16 at 14:59 Iohexol (Omnipaque 300 Mg/ml) 75 ml 1X ONCE IV Last administered on 07/09/16 16:04; Start 07/09/16 at 16:15; Stop 07/09/16 at 16:16; Status DC Info (Do NOT chart on this entry -- for MONITORING) 1 each PRN DAILY PRN MC SEE COMMENTS; Start 07/09/16 at 16:00; Stop 07/11/16 at 15:59 Aspirin 81 mg 81 mg DAILYWBKFT PO Last administered on 07/10/16 08:54; Start at 08:00 Sodium Chloride (Iv Sodium Chloride 0.45%) 1,000 ml @ 75 mls/hr 1X ONCE IV Last administered on 07/09/16 18:38; Start 07/09/16 at 16:15; Stop 07/09/16 at 20: 18; Status DC Famotidine (Pepcid) 20 mg QHS PO Last administered on 07/09/16 20:58; Start 07/09/16 at 21:00 Enoxaparin Sodium (Lovenox 40mg Syringe) 40 mg Q24H SQ Last administered on 07/09 18:38; Start 07/09/16 at 18:00 Aspirin (Children'S Aspirin) 81 mg DAILYWBKFT PO ; Start 07/10/16 at 08:00 Bupropion HCl (Wellbutrin Xl) 150 mg DAILY PO Last administered on 07/10/16 08: 54; Start 07/10/16 at 09:00 Escitalopram Oxalate (Lexapro) 10 mg DAILY PO Last administered on 07/10/16 08: 54; Start 07/10/16 at 09:00 Levothyroxine Sodium (Synthroid) 50 mcg DAILYAC PO ; Start 07/10/16 at 07:30; Status UNV Levothyroxine Sodium (Synthroid) 50 mcg DAILY07 PO Last administered on 06:43; Start 07/10/16 at 07:00 Tramadol HCl (Ultram) 50 mg PRN Q8HRS PRN PO PAIN Last administered on 20:59; Start 07/09/16 at 19:15 Trazodone HCl (Desyrel) 100 mg HS PO Last administered on 07/09/16 21:02; Start 07/09/16 at 21:00 Ropinirole HCl (Requip) 0.5 mg BID PO Last administered on 07/10/16 09:34; Start 07/09/16 at 21:00 Enoxaparin Sodium (Lovenox 60mg Syringe) 60 mg 1X ONCE SQ Last administered on 07/10/16 09:34; Start 07/10/16 at 08:45; Stop 07/10/16 at 08:46; Status DC Active Scripts Active Reported Atorvastatin Calcium 40 Mg Tablet 40 Mg PO HS Escitalopram Oxalate 10 Mg Tablet 10 Mg PO DAILY Wellbutrin Xl (Bupropion Hcl) 150 Mg Tab.er.24h 150 Mg PO DAILY Trazodone Hcl 100 Mg Tablet 100 Mg PO HS Tramadol Hcl 50 Mg Tablet 50 Mg PO PRN Q8HRS PRN Requip (Ropinirole Hcl) 0.5 Mg Tablet 0.5 Mg PO BID Levothyroxine Sodium 50 Mcg Tablet 50 Mcg PO DAILYAC Aspirin 81 Mg Tab.chew 81 Mg PO DAILY Synthroid (Levothyroxine Sodium) 50 Mcg Tablet 50 Mcg PO Vitals/I & O Vital Sign - Last 24 Hours 07/09/16 07/09/16 07/09/16 07/09/16 13:00 13:30 14:30 15:25 Temp 97.8 97.8 Pulse 80 64 74 58 Resp 18 15 16 16 B/P 161/71 142/64 131/63 134/62 Pulse Ox 96 94 94 94 O2 Delivery Room Air Room Air Room Air Room Air 07/09/16 07/09/16 07/09/16 07/09/16 16:30 17:30 19:05 19:54 Temp 97.7 98.0 97.7 98.0 Pulse 66 63 Resp 18 16 B/P 170/70 136/60 Pulse Ox 97 97 O2 Delivery Room Air Room Air Room Air Room Air 07/09/16 07/09/16 07/09/16 07/09/16 20:58 20:59 22:00 23:40 Temp 98.4 98.4 Pulse 57 Resp 16 16 12 B/P 85/45 Pulse Ox 97 96 O2 Delivery Room Air Room Air Room Air Room Air 07/10/16 07/10/16 07/10/16 07/10/16 03:05 07:00 08:00 11:00 Temp 98.6 98.0 97.9 98.6 98.0 97.9 Pulse 63 75 74 Resp B/P 105/52 122/55 118/66 Pulse Ox 96 94 95 O2 Delivery Room Air Room Air Room Air Room Air Intake and Output 07/09/16 07/09/16 07/10/16 15:00 23:00 07:00 Intake Total 300 ml Balance 300 ml AGUSTIN HADLEY MD Jul 10, 2016 11:57
[2016-07-10] MEDS ORDERED: BISACODYL 10 MG SUPP.RECT PR PRN (14:15)
[2016-07-10] MEDS: ONDANSETRON PF 4 MG/2 ML VIAL. IV PRN (14:18)
[2016-07-10 15:00] VITALS: BP 114/55
--- NOTE | 2016-07-10 16:57 | PDOC ---
PULMONARY PROGRESS NOTES Vitals Vital Signs Date Time Temp Pulse Resp B/P Pulse Ox O2 Delivery O2 Flow Rate FiO2 07/10/16 15:00 97.7 67 18 114/55 91 Room Air 97.7 Labs Laboratory Tests Test 07/09/16 13:35 07/09/16 21:15 07/10/16 03:15 07/10/16 07:10 White Blood Count 4.3x10^3/uL (4.0-11.0) Red Blood Count 3.98x10^6/uL (3.50-5.40) Hemoglobin 11.0g/dL (12.0-15.5) Hematocrit 34.7% (36.0-47.0) Mean Corpuscular Volume 87fL (79-100) Mean Corpuscular Hemoglobin 28pg (25-35) Mean Corpuscular Hemoglobin Concent 32g/dL (31-37) Red Cell Distribution Width 17.3% (11.5-14.5) Platelet Count 335x10^3/uL (140-400) Neutrophils (%) (Auto) 65% (31-73) Lymphocytes (%) (Auto) 26% (24-48) Monocytes (%) (Auto) 7% (0-9) Eosinophils (%) (Auto) 2% (0-3) Basophils (%) (Auto) 1% (0-3) Neutrophils # (Auto) 2.8x10^3uL (1.8-7.7) Lymphocytes # (Auto) 1.1x10^3/uL (1.0-4.8) Monocytes # (Auto) 0.3x10^3/uL (0.0-1.1) Eosinophils # (Auto) 0.1x10^3/uL (0.0-0.7) Basophils # (Auto) 0.0x10^3/uL (0.0-0.2) D-Dimer (Stephanie) 3.00ug/mlFEU (0.00-0.50) Sodium Level 144mmol/L (136-145) Potassium Level 3.7mmol/L (3.5-5.1) Chloride Level 105mmol/L (98-107) Carbon Dioxide Level 27mmol/L (21-32) Anion Gap 12 (6-14) Blood Urea Nitrogen 19mg/dL (7-20) Creatinine 0.7mg/dL (0.6-1.0) Estimated GFR (Cockcroft-Gault) 79.0 Glucose Level 103mg/dL (70-99) Calcium Level 9.6mg/dL (8.5-10.1) Troponin I Quantitative < 0.017ng/mL (0.000-0.055) < 0.017ng/mL (0.000-0.055) < 0.017ng/mL (0.000-0.055) Prothrombin Time 13.2SEC (11.7-14.0) Prothromb Time International Ratio 1.1 (0.8-1.1) Laboratory Tests Test 07/09/16 21:15 07/10/16 03:15 07/10/16 07:10 Troponin I Quantitative < 0.017ng/mL (0.000-0.055) < 0.017ng/mL (0.000-0.055) Prothrombin Time 13.2SEC (11.7-14.0) Prothromb Time International Ratio 1.1 (0.8-1.1) Medications Active Scripts Medications Dose Route/Sig Days Date Category Atorvastatin Calcium 40 Mg Tablet 40 Mg PO HS 07/09/16 Reported Escitalopram Oxalate 10 Mg Tablet 10 Mg PO DAILY 07/09/16 Reported Wellbutrin Xl (Bupropion Hcl) 150 Mg Tab.er.24h 150 Mg PO DAILY 07/09/16 Reported Trazodone Hcl 100 Mg Tablet 100 Mg PO HS 07/09/16 Reported Tramadol Hcl 50 Mg Tablet 50 Mg PO PRN Q8HRS PRN 07/09/16 Reported Requip (Ropinirole Hcl) 0.5 Mg Tablet 0.5 Mg PO BID 07/09/16 Reported Levothyroxine Sodium 50 Mcg Tablet 50 Mcg PO DAILYAC 07/09/16 Reported Aspirin 81 Mg Tab.chew 81 Mg PO DAILY 07/09/16 Reported Synthroid (Levothyroxine Sodium) 50 Mcg Tablet 50 Mcg PO 09/25/13 Reported Impression . FULL CONSULT DICTATED AGREE WITH CURRENT RX PT AGREED TO NEW ORAL AGENT WILL START JEANETHQUIS IN AM CECILY JULIEN MD Jul 10, 2016 16:57
[2016-07-10 19:15] VITALS: BP 126/59
[2016-07-10] MEDS: ENOXAPARIN ** NOTE DOSE ** SYRINGE SQ SCH (21:47)
[2016-07-10] MEDS: FAMOTIDINE 20 MG TABLET. PO SCH (21:48)
[2016-07-10] MEDS: traZODone 100 MG TABLET. PO SCH (21:48)
[2016-07-10 22:55] VITALS: BP 109/52
[2016-07-11 03:30] VITALS: BP 119/58
[2016-07-11 05:18] LABS: BASO % 1 % (0-3); EOS % 5 % (0-3); HEMATOCRIT 30.8 % (36.0-47.0); HEMOGLOBIN 9.9 g/dL (12.0-15.5); LYMPH # 1.6 x10^3/uL (1.0-4.8); LYMPH % 39 % (24-48); MEAN CORPUSCULAR HEMOGLOBIN 28 pg (25-35); MEAN CORPUSCULAR HGB CONC 32 g/dL (31-37); MEAN CORPUSCULAR VOLUME 86 fL (79-100); MONO % 10 % (0-9); NEUT % 46 % (31-73); PLATELET COUNT 312 x10^3/uL (140-400); RED BLOOD COUNT 3.59 x10^6/uL (3.50-5.40); WHITE BLOOD COUNT 4.2 x10^3/uL (4.0-11.0)
[2016-07-11 05:59] LABS: CALCIUM 8.5 mg/dL (8.5-10.1); CREATININE 0.7 mg/dL (0.6-1.0); POTASSIUM 3.3 mmol/L (3.5-5.1)
[2016-07-11] MEDS: LEVOTHYROXINE 50 MCG TABLET PO SCH (06:42)
[2016-07-11 07:00] VITALS: BP 120/58
--- NOTE | 2016-07-11 07:55 | PDOC ---
PROGRESS NOTES Subjective Subjective Patient seen and examined Objective Objective Vital Signs Date Time Temp Pulse Resp B/P Pulse Ox O2 Delivery O2 Flow Rate FiO2 07/11/16 03:30 98.4 55 18 119/58 92 Room Air 98.4 Intake and Output 07/11/16 07:00 Intake Total 760 ml Output Total 2 ml Balance 758 ml Intake Oral 760 ml Output Urine Total 2 ml # Voids 4 # Bowel Movements 1 Physical Exam Abdomen: Normal bowel sounds Heart: Regular rate General: No acute distress Lungs: Clear to auscultation Assessment Assessment Problems Medical Problems: (1) Angina effort Status: Acute ASSESSMENT/PLAN 1. Dyspnea: Secondary to pulmonary emboli. Clinically improved. Anticoagulation as per the primary service. Echocardiogram today. CV status is stable. 2. Hypothyroidism 3. GERD Comment Review of Relevant I have reviewed the following items jesús (where applicable) has been applied. Labs Laboratory Tests Test 07/09/16 13:35 07/09/16 21:15 07/10/16 03:15 07/10/16 07:10 White Blood Count 4.3x10^3/uL (4.0-11.0) Red Blood Count 3.98x10^6/uL (3.50-5.40) Hemoglobin 11.0g/dL (12.0-15.5) Hematocrit 34.7% (36.0-47.0) Mean Corpuscular Volume 87fL (79-100) Mean Corpuscular Hemoglobin 28pg (25-35) Mean Corpuscular Hemoglobin Concent 32g/dL (31-37) Red Cell Distribution Width 17.3% (11.5-14.5) Platelet Count 335x10^3/uL (140-400) Neutrophils (%) (Auto) 65% (31-73) Lymphocytes (%) (Auto) 26% (24-48) Monocytes (%) (Auto) 7% (0-9) Eosinophils (%) (Auto) 2% (0-3) Basophils (%) (Auto) 1% (0-3) Neutrophils # (Auto) 2.8x10^3uL (1.8-7.7) Lymphocytes # (Auto) 1.1x10^3/uL (1.0-4.8) Monocytes # (Auto) 0.3x10^3/uL (0.0-1.1) Eosinophils # (Auto) 0.1x10^3/uL (0.0-0.7) Basophils # (Auto) 0.0x10^3/uL (0.0-0.2) D-Dimer (Stephanie) 3.00ug/mlFEU (0.00-0.50) Sodium Level 144mmol/L (136-145) Potassium Level 3.7mmol/L (3.5-5.1) Chloride Level 105mmol/L (98-107) Carbon Dioxide Level 27mmol/L (21-32) Anion Gap 12 (6-14) Blood Urea Nitrogen 19mg/dL (7-20) Creatinine 0.7mg/dL (0.6-1.0) Estimated GFR (Cockcroft-Gault) 79.0 Glucose Level 103mg/dL (70-99) Calcium Level 9.6mg/dL (8.5-10.1) Troponin I Quantitative < 0.017ng/mL (0.000-0.055) < 0.017ng/mL (0.000-0.055) < 0.017ng/mL (0.000-0.055) Prothrombin Time 13.2SEC (11.7-14.0) Prothromb Time International Ratio 1.1 (0.8-1.1) Test 07/11/16 05:00 White Blood Count 4.2x10^3/uL (4.0-11.0) Red Blood Count 3.59x10^6/uL (3.50-5.40) Hemoglobin 9.9g/dL (12.0-15.5) Hematocrit 30.8% (36.0-47.0) Mean Corpuscular Volume 86fL (79-100) Mean Corpuscular Hemoglobin 28pg (25-35) Mean Corpuscular Hemoglobin Concent 32g/dL (31-37) Red Cell Distribution Width 17.0% (11.5-14.5) Platelet Count 312x10^3/uL (140-400) Neutrophils (%) (Auto) 46% (31-73) Lymphocytes (%) (Auto) 39% (24-48) Monocytes (%) (Auto) 10% (0-9) Eosinophils (%) (Auto) 5% (0-3) Basophils (%) (Auto) 1% (0-3) Neutrophils # (Auto) 1.9x10^3uL (1.8-7.7) Lymphocytes # (Auto) 1.6x10^3/uL (1.0-4.8) Monocytes # (Auto) 0.4x10^3/uL (0.0-1.1) Eosinophils # (Auto) 0.2x10^3/uL (0.0-0.7) Basophils # (Auto) 0.0x10^3/uL (0.0-0.2) Sodium Level 144mmol/L (136-145) Potassium Level 3.3mmol/L (3.5-5.1) Chloride Level 109mmol/L (98-107) Carbon Dioxide Level 28mmol/L (21-32) Anion Gap 7 (6-14) Blood Urea Nitrogen 21mg/dL (7-20) Creatinine 0.7mg/dL (0.6-1.0) Estimated GFR (Cockcroft-Gault) 79.0 Glucose Level 94mg/dL (70-99) Calcium Level 8.5mg/dL (8.5-10.1) Laboratory Tests Test 07/11/16 05:00 White Blood Count 4.2x10^3/uL (4.0-11.0) Red Blood Count 3.59x10^6/uL (3.50-5.40) Hemoglobin 9.9g/dL (12.0-15.5) Hematocrit 30.8% (36.0-47.0) Mean Corpuscular Volume 86fL (79-100) Mean Corpuscular Hemoglobin 28pg (25-35) Mean Corpuscular Hemoglobin Concent 32g/dL (31-37) Red Cell Distribution Width 17.0% (11.5-14.5) Platelet Count 312x10^3/uL (140-400) Neutrophils (%) (Auto) 46% (31-73) Lymphocytes (%) (Auto) 39% (24-48) Monocytes (%) (Auto) 10% (0-9) Eosinophils (%) (Auto) 5% (0-3) Basophils (%) (Auto) 1% (0-3) Neutrophils # (Auto) 1.9x10^3uL (1.8-7.7) Lymphocytes # (Auto) 1.6x10^3/uL (1.0-4.8) Monocytes # (Auto) 0.4x10^3/uL (0.0-1.1) Eosinophils # (Auto) 0.2x10^3/uL (0.0-0.7) Basophils # (Auto) 0.0x10^3/uL (0.0-0.2) Sodium Level 144mmol/L (136-145) Potassium Level 3.3mmol/L (3.5-5.1) Chloride Level 109mmol/L (98-107) Carbon Dioxide Level 28mmol/L (21-32) Anion Gap 7 (6-14) Blood Urea Nitrogen 21mg/dL (7-20) Creatinine 0.7mg/dL (0.6-1.0) Estimated GFR (Cockcroft-Gault) 79.0 Glucose Level 94mg/dL (70-99) Calcium Level 8.5mg/dL (8.5-10.1) Medications Current Medications Ondansetron HCl (Zofran) 4 mg PRN Q8HRS PRN IV NAUSEA/VOMITING Last administered on 07/10/16 14:18; Start 07/09/16 at 15:00; Stop 07/10/16 at 14:59; Status DC Acetaminophen (Tylenol) 650 mg PRN Q4HRS PRN PO FEVER; Start 07/09/16 at 15:00; Stop 07/10/16 at 14:59; Status DC Iohexol (Omnipaque 300 Mg/ml) 75 ml 1X ONCE IV Last administered on 07/09/16 16:04; Start 07/09/16 at 16:15; Stop 07/09/16 at 16:16; Status DC Info (Do NOT chart on this entry -- for MONITORING) 1 each PRN DAILY PRN MC SEE COMMENTS; Start 07/09/16 at 16:00; Stop 07/11/16 at 15:59 Aspirin 81 mg 81 mg DAILYWBKFT PO Last administered on 07/10/16 08:54; Start at 08:00 Sodium Chloride (Iv Sodium Chloride 0.45%) 1,000 ml @ 75 mls/hr 1X ONCE IV Last administered on 07/09/16 18:38; Start 07/09/16 at 16:15; Stop 07/09/16 at 20: 18; Status DC Famotidine (Pepcid) 20 mg QHS PO Last administered on 07/10/16 21:48; Start 07/09/16 at 21:00 Enoxaparin Sodium (Lovenox 40mg Syringe) 40 mg Q24H SQ Last administered on 07/09 18:38; Start 07/09/16 at 18:00; Stop 07/10/16 at 13:05; Status DC Aspirin (Children'S Aspirin) 81 mg DAILYWBKFT PO ; Start 07/10/16 at 08:00; Stop 07/10/16 at 14:15; Status DC Bupropion HCl (Wellbutrin Xl) 150 mg DAILY PO Last administered on 07/10/16 08: 54; Start 07/10/16 at 09:00 Escitalopram Oxalate (Lexapro) 10 mg DAILY PO Last administered on 07/10/16 08: 54; Start 07/10/16 at 09:00 Levothyroxine Sodium (Synthroid) 50 mcg DAILYAC PO ; Start 07/10/16 at 07:30; Status UNV Levothyroxine Sodium (Synthroid) 50 mcg DAILY07 PO Last administered on 06:42; Start 07/10/16 at 07:00 Tramadol HCl (Ultram) 50 mg PRN Q8HRS PRN PO PAIN Last administered on 20:59; Start 07/09/16 at 19:15 Trazodone HCl (Desyrel) 100 mg HS PO Last administered on 07/10/16 21:48; Start 07/09/16 at 21:00 Ropinirole HCl (Requip) 0.5 mg BID PO Last administered on 07/10/16 21:48; Start 07/09/16 at 21:00 Enoxaparin Sodium (Lovenox 60mg Syringe) 60 mg 1X ONCE SQ Last administered on 07/10/16 09:34; Start 07/10/16 at 08:45; Stop 07/10/16 at 08:46; Status DC Enoxaparin Sodium (Lovenox 60mg Syringe) 60 mg Q12HR SQ Last administered on 3/ 4/17at 21:47; Start 07/10/16 at 21:00 Bisacodyl (Dulcolax Supp) 10 mg PRN DAILY PRN IA CONSTIPATION; Start 07/10/16 at 14:15 Active Scripts Active Reported Atorvastatin Calcium 40 Mg Tablet 40 Mg PO HS Escitalopram Oxalate 10 Mg Tablet 10 Mg PO DAILY Wellbutrin Xl (Bupropion Hcl) 150 Mg Tab.er.24h 150 Mg PO DAILY Trazodone Hcl 100 Mg Tablet 100 Mg PO HS Tramadol Hcl 50 Mg Tablet 50 Mg PO PRN Q8HRS PRN Requip (Ropinirole Hcl) 0.5 Mg Tablet 0.5 Mg PO BID Levothyroxine Sodium 50 Mcg Tablet 50 Mcg PO DAILYAC Aspirin 81 Mg Tab.chew 81 Mg PO DAILY Synthroid (Levothyroxine Sodium) 50 Mcg Tablet 50 Mcg PO Vitals/I & O Vital Sign - Last 24 Hours 07/10/16 07/10/16 07/10/16 07/10/16 08:00 11:00 15:00 19:15 Temp 97.9 97.7 97.9 97.9 97.7 97.9 Pulse 74 67 60 Resp B/P 118/66 114/55 126/59 Pulse Ox 95 91 95 O2 Delivery Room Air Room Air Room Air Room Air 07/10/16 07/10/16 07/11/16 20:00 22:55 03:30 Temp 98.0 98.4 98.0 98.4 Pulse 57 55 Resp B/P 109/52 119/58 Pulse Ox 93 92 O2 Delivery Room Air Room Air Room Air Intake and Output 07/10/16 07/10/16 07/11/16 15:00 23:00 07:00 Intake Total 700 ml 60 ml Output Total 2 ml Balance 700 ml 58 ml AGUSTIN HADLEY MD Jul 11, 2016 07:55
[2016-07-11] MEDS: ESCITALOPRAM 10 MG TABLET. PO SCH (08:39)
[2016-07-11] MEDS: buPROPion XL 150 MG TAB.ER.24H PO SCH (08:39)
[2016-07-11] MEDS: ENOXAPARIN ** NOTE DOSE ** SYRINGE SQ SCH (08:39)
[2016-07-11] MEDS: ASPIRIN ENTERIC COATED 81 MG TABLET.DR. PO SCH (08:39)
[2016-07-11] MEDS: rOPINIRole 0.25 MG TABLET. PO SCH (09:00)
--- NOTE | 2016-07-11 11:09 | CONS ---
DATE OF CONSULTATION: 07/10/2016 REQUESTING PHYSICIAN: Thad Lehman D.O. REASON FOR CONSULTATION: The patient seen in pulmonary consultation at the request of Dr. Lehman for pulmonary embolism. HISTORY OF PRESENT ILLNESS: The patient is an 89-year-old that presented with acute onset of shortness of breath, unable to take a deep breath, some pleuritic type of discomfort. She was seen in the Emergency Room and underwent a CT of the chest. I reviewed the CT. There are 2 pulmonary thrombi, one in the right middle lobe artery and one in the right lower lobe artery. The patient has had venous Dopplers, which were negative for DVT. No clinical identifiable cause for her pulmonary embolism at this time. She has not traveled in a car, no recent trauma, no recent surgery, no history of cancer. There is no family history of thrombophilia. PAST MEDICAL HISTORY: Depression, anxiety, hypothyroidism, restless leg, breast augmentation. ALLERGIES: PENICILLIN AND CODEINE. FAMILY HISTORY: Hypertension. No family history of thrombophilia. SOCIAL HISTORY: She has never smoked, has worked as an RN at [employer]. MEDICATIONS: List was reviewed. Please see the MRAD. REVIEW OF SYSTEMS: As indicated above; otherwise, a 10-point system was reviewed and negative. PHYSICAL EXAMINATION: VITAL SIGNS: Stable. O2 saturation was greater than 92% on room air. HEENT: Eyes, the sclerae were nonicteric. NECK: Jugular venous distention was not elevated. No lymphadenopathy. CHEST: Full expansion. LUNGS: Adequate airway flow, no wheezes. CARDIOVASCULAR: Regular rate and rhythm with S1, S2, no S3. ABDOMEN: Soft, nontender, nondistended. EXTREMITIES: No clubbing, cyanosis or edema. NEUROLOGIC: The patient was awake, alert, following commands. A detailed neuro exam was not performed. LABORATORY DATA: INR was initially normal. D-dimer was elevated. Electrolytes were normal. BUN and creatinine were normal. DIAGNOSTIC DATA: CT is as described above. IMPRESSION: Acute pulmonary embolism, etiology unclear. No clinical identifiable cause. There is no family history of thrombophilia. PLAN: 1. Recommend to continue Lovenox 1 mg per kg. 2. Recommend initiating Eliquis orally and possibly discharging home in 24-48 hours. The patient has not had any recent fall. She is very steady on her feet. She walks on a daily basis. 3. I also recommend some screening tests such as mammography, Pap smear and colonoscopy. I do appreciate the privilege in sharing in the patient's care. CECILY JULIEN MD DR: RUBEN/ej JOB#: [id number] / [id number] ESCOBAR Diallo MD
[2016-07-11 11:12] VITALS: BP 122/59
--- NOTE | 2016-07-11 11:47 | PDOC ---
PROGRESS NOTES Chief Complaint Chief Complaint - Pulmonary Embolism - Hypothyroidism - Arthritis - Depression History of Present Illness History of Present Illness Patient was sitting in the bed, was awake, alert, oriented, and was comfortable , no CP reported, no overnight acute event reported. plan of care was discussed with RN and patient and they showed their understanding to it. Vitals Vitals Vital Signs Date Time Temp Pulse Resp B/P Pulse Ox O2 Delivery O2 Flow Rate FiO2 07/11/16 11:12 98.4 55 18 122/59 95 Room Air 98.4 Physical Exam General: Alert, Oriented X3, Cooperative, No acute distress Heart: Regular rate Abdomen: Normal bowel sounds, Soft, No tenderness Extremities: No clubbing, No cyanosis, No edema Skin: No breakdown, No significant lesion Labs LABS Laboratory Tests Test 07/11/16 05:00 White Blood Count 4.2x10^3/uL (4.0-11.0) Red Blood Count 3.59x10^6/uL (3.50-5.40) Hemoglobin 9.9g/dL (12.0-15.5) Hematocrit 30.8% (36.0-47.0) Mean Corpuscular Volume 86fL (79-100) Mean Corpuscular Hemoglobin 28pg (25-35) Mean Corpuscular Hemoglobin Concent 32g/dL (31-37) Red Cell Distribution Width 17.0% (11.5-14.5) Platelet Count 312x10^3/uL (140-400) Neutrophils (%) (Auto) 46% (31-73) Lymphocytes (%) (Auto) 39% (24-48) Monocytes (%) (Auto) 10% (0-9) Eosinophils (%) (Auto) 5% (0-3) Basophils (%) (Auto) 1% (0-3) Neutrophils # (Auto) 1.9x10^3uL (1.8-7.7) Lymphocytes # (Auto) 1.6x10^3/uL (1.0-4.8) Monocytes # (Auto) 0.4x10^3/uL (0.0-1.1) Eosinophils # (Auto) 0.2x10^3/uL (0.0-0.7) Basophils # (Auto) 0.0x10^3/uL (0.0-0.2) Sodium Level 144mmol/L (136-145) Potassium Level 3.3mmol/L (3.5-5.1) Chloride Level 109mmol/L (98-107) Carbon Dioxide Level 28mmol/L (21-32) Anion Gap 7 (6-14) Blood Urea Nitrogen 21mg/dL (7-20) Creatinine 0.7mg/dL (0.6-1.0) Estimated GFR (Cockcroft-Gault) 79.0 Glucose Level 94mg/dL (70-99) Calcium Level 8.5mg/dL (8.5-10.1) Review of Systems Review of Systems Afebrile, no SOB, no CP, breathing at room air, awake, alert oriented x3, no new complains reported. Assessment and Plan Assessmemt and Plan ASSESSMENT: - Pulmonary Embolism - Hypothyroidism - Arthritis PLAN: - Continue care per floor protocol - Continue cardiac monitoring - tolerating lovenox well, hope to change to oral anticoagulants if pulmonary aggeres - recheck labs in AM - appreciate subspecialties input and recommendations Problems Medical Problems: (1) Angina effort Status: Acute Problems: Comment Review of Relevant I have reviewed the following items jesús (where applicable) has been applied. Labs Laboratory Tests Test 07/09/16 13:35 07/09/16 21:15 07/10/16 03:15 07/10/16 07:10 White Blood Count 4.3x10^3/uL (4.0-11.0) Red Blood Count 3.98x10^6/uL (3.50-5.40) Hemoglobin 11.0g/dL (12.0-15.5) Hematocrit 34.7% (36.0-47.0) Mean Corpuscular Volume 87fL (79-100) Mean Corpuscular Hemoglobin 28pg (25-35) Mean Corpuscular Hemoglobin Concent 32g/dL (31-37) Red Cell Distribution Width 17.3% (11.5-14.5) Platelet Count 335x10^3/uL (140-400) Neutrophils (%) (Auto) 65% (31-73) Lymphocytes (%) (Auto) 26% (24-48) Monocytes (%) (Auto) 7% (0-9) Eosinophils (%) (Auto) 2% (0-3) Basophils (%) (Auto) 1% (0-3) Neutrophils # (Auto) 2.8x10^3uL (1.8-7.7) Lymphocytes # (Auto) 1.1x10^3/uL (1.0-4.8) Monocytes # (Auto) 0.3x10^3/uL (0.0-1.1) Eosinophils # (Auto) 0.1x10^3/uL (0.0-0.7) Basophils # (Auto) 0.0x10^3/uL (0.0-0.2) D-Dimer (Stephanie) 3.00ug/mlFEU (0.00-0.50) Sodium Level 144mmol/L (136-145) Potassium Level 3.7mmol/L (3.5-5.1) Chloride Level 105mmol/L (98-107) Carbon Dioxide Level 27mmol/L (21-32) Anion Gap 12 (6-14) Blood Urea Nitrogen 19mg/dL (7-20) Creatinine 0.7mg/dL (0.6-1.0) Estimated GFR (Cockcroft-Gault) 79.0 Glucose Level 103mg/dL (70-99) Calcium Level 9.6mg/dL (8.5-10.1) Troponin I Quantitative < 0.017ng/mL (0.000-0.055) < 0.017ng/mL (0.000-0.055) < 0.017ng/mL (0.000-0.055) Prothrombin Time 13.2SEC (11.7-14.0) Prothromb Time International Ratio 1.1 (0.8-1.1) Test 07/11/16 05:00 White Blood Count 4.2x10^3/uL (4.0-11.0) Red Blood Count 3.59x10^6/uL (3.50-5.40) Hemoglobin 9.9g/dL (12.0-15.5) Hematocrit 30.8% (36.0-47.0) Mean Corpuscular Volume 86fL (79-100) Mean Corpuscular Hemoglobin 28pg (25-35) Mean Corpuscular Hemoglobin Concent 32g/dL (31-37) Red Cell Distribution Width 17.0% (11.5-14.5) Platelet Count 312x10^3/uL (140-400) Neutrophils (%) (Auto) 46% (31-73) Lymphocytes (%) (Auto) 39% (24-48) Monocytes (%) (Auto) 10% (0-9) Eosinophils (%) (Auto) 5% (0-3) Basophils (%) (Auto) 1% (0-3) Neutrophils # (Auto) 1.9x10^3uL (1.8-7.7) Lymphocytes # (Auto) 1.6x10^3/uL (1.0-4.8) Monocytes # (Auto) 0.4x10^3/uL (0.0-1.1) Eosinophils # (Auto) 0.2x10^3/uL (0.0-0.7) Basophils # (Auto) 0.0x10^3/uL (0.0-0.2) Sodium Level 144mmol/L (136-145) Potassium Level 3.3mmol/L (3.5-5.1) Chloride Level 109mmol/L (98-107) Carbon Dioxide Level 28mmol/L (21-32) Anion Gap 7 (6-14) Blood Urea Nitrogen 21mg/dL (7-20) Creatinine 0.7mg/dL (0.6-1.0) Estimated GFR (Cockcroft-Gault) 79.0 Glucose Level 94mg/dL (70-99) Calcium Level 8.5mg/dL (8.5-10.1) Laboratory Tests Test 07/11/16 05:00 White Blood Count 4.2x10^3/uL (4.0-11.0) Red Blood Count 3.59x10^6/uL (3.50-5.40) Hemoglobin 9.9g/dL (12.0-15.5) Hematocrit 30.8% (36.0-47.0) Mean Corpuscular Volume 86fL (79-100) Mean Corpuscular Hemoglobin 28pg (25-35) Mean Corpuscular Hemoglobin Concent 32g/dL (31-37) Red Cell Distribution Width 17.0% (11.5-14.5) Platelet Count 312x10^3/uL (140-400) Neutrophils (%) (Auto) 46% (31-73) Lymphocytes (%) (Auto) 39% (24-48) Monocytes (%) (Auto) 10% (0-9) Eosinophils (%) (Auto) 5% (0-3) Basophils (%) (Auto) 1% (0-3) Neutrophils # (Auto) 1.9x10^3uL (1.8-7.7) Lymphocytes # (Auto) 1.6x10^3/uL (1.0-4.8) Monocytes # (Auto) 0.4x10^3/uL (0.0-1.1) Eosinophils # (Auto) 0.2x10^3/uL (0.0-0.7) Basophils # (Auto) 0.0x10^3/uL (0.0-0.2) Sodium Level 144mmol/L (136-145) Potassium Level 3.3mmol/L (3.5-5.1) Chloride Level 109mmol/L (98-107) Carbon Dioxide Level 28mmol/L (21-32) Anion Gap 7 (6-14) Blood Urea Nitrogen 21mg/dL (7-20) Creatinine 0.7mg/dL (0.6-1.0) Estimated GFR (Cockcroft-Gault) 79.0 Glucose Level 94mg/dL (70-99) Calcium Level 8.5mg/dL (8.5-10.1) Medications Current Medications Ondansetron HCl (Zofran) 4 mg PRN Q8HRS PRN IV NAUSEA/VOMITING Last administered on 07/10/16 14:18; Start 07/09/16 at 15:00; Stop 07/10/16 at 14:59; Status DC Acetaminophen (Tylenol) 650 mg PRN Q4HRS PRN PO FEVER; Start 07/09/16 at 15:00; Stop 07/10/16 at 14:59; Status DC Iohexol (Omnipaque 300 Mg/ml) 75 ml 1X ONCE IV Last administered on 07/09/16 16:04; Start 07/09/16 at 16:15; Stop 07/09/16 at 16:16; Status DC Info (Do NOT chart on this entry -- for MONITORING) 1 each PRN DAILY PRN MC SEE COMMENTS; Start 07/09/16 at 16:00; Stop 07/11/16 at 15:59 Aspirin 81 mg 81 mg DAILYWBKFT PO Last administered on 07/11/16 08:39; Start at 08:00 Sodium Chloride (Iv Sodium Chloride 0.45%) 1,000 ml @ 75 mls/hr 1X ONCE IV Last administered on 07/09/16 18:38; Start 07/09/16 at 16:15; Stop 07/09/16 at 20: 18; Status DC Famotidine (Pepcid) 20 mg QHS PO Last administered on 07/10/16 21:48; Start 07/09/16 at 21:00 Enoxaparin Sodium (Lovenox 40mg Syringe) 40 mg Q24H SQ Last administered on 07/09 18:38; Start 07/09/16 at 18:00; Stop 07/10/16 at 13:05; Status DC Aspirin (Children'S Aspirin) 81 mg DAILYWBKFT PO ; Start 07/10/16 at 08:00; Stop 07/10/16 at 14:15; Status DC Bupropion HCl (Wellbutrin Xl) 150 mg DAILY PO Last administered on 07/11/16 08: 39; Start 07/10/16 at 09:00 Escitalopram Oxalate (Lexapro) 10 mg DAILY PO Last administered on 07/11/16 08: 39; Start 07/10/16 at 09:00 Levothyroxine Sodium (Synthroid) 50 mcg DAILYAC PO ; Start 07/10/16 at 07:30; Status UNV Levothyroxine Sodium (Synthroid) 50 mcg DAILY07 PO Last administered on 06:42; Start 07/10/16 at 07:00 Tramadol HCl (Ultram) 50 mg PRN Q8HRS PRN PO PAIN Last administered on 20:59; Start 07/09/16 at 19:15 Trazodone HCl (Desyrel) 100 mg HS PO Last administered on 07/10/16 21:48; Start 07/09/16 at 21:00 Ropinirole HCl (Requip) 0.5 mg BID PO Last administered on 07/10/16 21:48; Start 07/09/16 at 21:00; Stop 07/11/16 at 10:47; Status DC Enoxaparin Sodium (Lovenox 60mg Syringe) 60 mg 1X ONCE SQ Last administered on 07/10/16 09:34; Start 07/10/16 at 08:45; Stop 07/10/16 at 08:46; Status DC Enoxaparin Sodium (Lovenox 60mg Syringe) 60 mg Q12HR SQ Last administered on 08:39; Start 07/10/16 at 21:00 Bisacodyl (Dulcolax Supp) 10 mg PRN DAILY PRN OR CONSTIPATION; Start 07/10/16 at 14:15 Ropinirole HCl (Requip) 0.5 mg HS PO ; Start 07/11/16 at 21:00 Active Scripts Active Reported Atorvastatin Calcium 40 Mg Tablet 40 Mg PO HS Escitalopram Oxalate 10 Mg Tablet 10 Mg PO DAILY Wellbutrin Xl (Bupropion Hcl) 150 Mg Tab.er.24h 150 Mg PO DAILY Trazodone Hcl 100 Mg Tablet 100 Mg PO HS Tramadol Hcl 50 Mg Tablet 50 Mg PO PRN Q8HRS PRN Requip (Ropinirole Hcl) 0.5 Mg Tablet 0.5 Mg PO BID Levothyroxine Sodium 50 Mcg Tablet 50 Mcg PO DAILYAC Aspirin 81 Mg Tab.chew 81 Mg PO DAILY Synthroid (Levothyroxine Sodium) 50 Mcg Tablet 50 Mcg PO Vitals/I & O Vital Sign - Last 24 Hours 07/10/16 07/10/16 07/10/16 07/10/16 15:00 19:15 20:00 22:55 Temp 97.7 97.9 98.0 97.7 97.9 98.0 Pulse 67 60 57 Resp 18 20 B/P 114/55 126/59 109/52 Pulse Ox 91 95 93 O2 Delivery Room Air Room Air Room Air Room Air 07/11/16 07/11/16 07/11/16 07/11/16 03:30 07:00 08:00 11:12 Temp 98.4 98.3 98.4 98.4 98.3 98.4 Pulse 55 60 55 Resp 18 19 18 B/P 119/58 120/58 122/59 Pulse Ox 92 93 95 O2 Delivery Room Air Room Air Room Air Room Air Intake and Output 07/10/16 07/10/16 07/11/16 15:00 23:00 07:00 Intake Total 700 ml 60 ml Output Total 2 ml Balance 700 ml 58 ml EL GARCIA III DO Jul 11, 2016 11:47
[2016-07-11 14:08] LABS: PROTHROMBIN TIME PATIENT 12.9 SEC (11.7-14.0)
--- NOTE | 2016-07-11 14:15 | PDOC ---
PULMONARY PROGRESS NOTES Subjective no increase soa Vitals Vital Signs Date Time Temp Pulse Resp B/P Pulse Ox O2 Delivery O2 Flow Rate FiO2 07/11/16 11:12 98.4 55 18 122/59 95 Room Air 98.4 ROS: No Nausea, No Chest Pain, No Abdominal Pain, No Increase Cough General: Alert Lungs: Clear Cardiovascular: S1, S2 Abdomen: Soft, Non-tender Neuro Exam: Alert Extremities: No Edema Skin: Warm Labs Laboratory Tests Test 07/09/16 21:15 07/10/16 03:15 07/10/16 07:10 07/11/16 05:00 Troponin I Quantitative < 0.017ng/mL (0.000-0.055) < 0.017ng/mL (0.000-0.055) Prothrombin Time 13.2SEC (11.7-14.0) Prothromb Time International Ratio 1.1 (0.8-1.1) White Blood Count 4.2x10^3/uL (4.0-11.0) Red Blood Count 3.59x10^6/uL (3.50-5.40) Hemoglobin 9.9g/dL (12.0-15.5) Hematocrit 30.8% (36.0-47.0) Mean Corpuscular Volume 86fL (79-100) Mean Corpuscular Hemoglobin 28pg (25-35) Mean Corpuscular Hemoglobin Concent 32g/dL (31-37) Red Cell Distribution Width 17.0% (11.5-14.5) Platelet Count 312x10^3/uL (140-400) Neutrophils (%) (Auto) 46% (31-73) Lymphocytes (%) (Auto) 39% (24-48) Monocytes (%) (Auto) 10% (0-9) Eosinophils (%) (Auto) 5% (0-3) Basophils (%) (Auto) 1% (0-3) Neutrophils # (Auto) 1.9x10^3uL (1.8-7.7) Lymphocytes # (Auto) 1.6x10^3/uL (1.0-4.8) Monocytes # (Auto) 0.4x10^3/uL (0.0-1.1) Eosinophils # (Auto) 0.2x10^3/uL (0.0-0.7) Basophils # (Auto) 0.0x10^3/uL (0.0-0.2) Sodium Level 144mmol/L (136-145) Potassium Level 3.3mmol/L (3.5-5.1) Chloride Level 109mmol/L (98-107) Carbon Dioxide Level 28mmol/L (21-32) Anion Gap 7 (6-14) Blood Urea Nitrogen 21mg/dL (7-20) Creatinine 0.7mg/dL (0.6-1.0) Estimated GFR (Cockcroft-Gault) 79.0 Glucose Level 94mg/dL (70-99) Calcium Level 8.5mg/dL (8.5-10.1) Laboratory Tests Test 07/11/16 05:00 White Blood Count 4.2x10^3/uL (4.0-11.0) Red Blood Count 3.59x10^6/uL (3.50-5.40) Hemoglobin 9.9g/dL (12.0-15.5) Hematocrit 30.8% (36.0-47.0) Mean Corpuscular Volume 86fL (79-100) Mean Corpuscular Hemoglobin 28pg (25-35) Mean Corpuscular Hemoglobin Concent 32g/dL (31-37) Red Cell Distribution Width 17.0% (11.5-14.5) Platelet Count 312x10^3/uL (140-400) Neutrophils (%) (Auto) 46% (31-73) Lymphocytes (%) (Auto) 39% (24-48) Monocytes (%) (Auto) 10% (0-9) Eosinophils (%) (Auto) 5% (0-3) Basophils (%) (Auto) 1% (0-3) Neutrophils # (Auto) 1.9x10^3uL (1.8-7.7) Lymphocytes # (Auto) 1.6x10^3/uL (1.0-4.8) Monocytes # (Auto) 0.4x10^3/uL (0.0-1.1) Eosinophils # (Auto) 0.2x10^3/uL (0.0-0.7) Basophils # (Auto) 0.0x10^3/uL (0.0-0.2) Sodium Level 144mmol/L (136-145) Potassium Level 3.3mmol/L (3.5-5.1) Chloride Level 109mmol/L (98-107) Carbon Dioxide Level 28mmol/L (21-32) Anion Gap 7 (6-14) Blood Urea Nitrogen 21mg/dL (7-20) Creatinine 0.7mg/dL (0.6-1.0) Estimated GFR (Cockcroft-Gault) 79.0 Glucose Level 94mg/dL (70-99) Calcium Level 8.5mg/dL (8.5-10.1) Medications Active Scripts Medications Dose Route/Sig Days Date Category Atorvastatin Calcium 40 Mg Tablet 40 Mg PO HS 07/09/16 Reported Escitalopram Oxalate 10 Mg Tablet 10 Mg PO DAILY 07/09/16 Reported Wellbutrin Xl (Bupropion Hcl) 150 Mg Tab.er.24h 150 Mg PO DAILY 07/09/16 Reported Trazodone Hcl 100 Mg Tablet 100 Mg PO HS 07/09/16 Reported Tramadol Hcl 50 Mg Tablet 50 Mg PO PRN Q8HRS PRN 07/09/16 Reported Requip (Ropinirole Hcl) 0.5 Mg Tablet 0.5 Mg PO BID 07/09/16 Reported Levothyroxine Sodium 50 Mcg Tablet 50 Mcg PO DAILYAC 07/09/16 Reported Aspirin 81 Mg Tab.chew 81 Mg PO DAILY 07/09/16 Reported Synthroid (Levothyroxine Sodium) 50 Mcg Tablet 50 Mcg PO 09/25/13 Reported Impression . IMPRESSION: Acute pulmonary embolism, etiology unclear. No clinical identifiable cause. There is no family history of thrombophilia. NO DVT Plan . PLAN: 1. Recommend to continue Lovenox 1 mg per kg. 2. Start Eliqius 10mg BID for one week and than 5mg BID, The patient has not had any recent fall. She is very steady on her feet. She walks on a daily basis. 3. I also recommend some screening tests such as mammography, Pap smear and colonoscopy. CECILY JULIEN MD Jul 11, 2016 14:15
[2016-07-11 14:50] VITALS: BP 109/56
--- NOTE | 2016-07-11 15:35 | CARD ---
APPROVED REPORT EXAM: Two-dimensional and M-mode echocardiogram with Doppler and color Doppler. Other Information Quality : Average Rhythm : NSR INDICATION Pulmonary embolus 2D DIMENSIONS RVDd2.7 (2.9-3.5cm)Left Atrium(2D)3.2 (1.6-4.0cm) IVSd1.0 (0.7-1.1cm)Aortic Root(2D)2.5 (2.0-3.7cm) LVDd4.4 (3.9-5.9cm)LVOT Diameter2.0 (1.8-2.4cm) PWd1.0 (0.7-1.1cm)LVDs2.6 (2.5-4.0cm) FS (%) 40.4 %SV64.1 ml LVEF(%)71.3 (>50%) Aortic Valve AoV Peak Albaro.136.4cm/sAoV VTI28.7cm AO Peak GR.7.4mmHgLVOT VTI 20.55cm AO Mean GR.4mmHgAVA (VTI)2.18cm2 Mitral Valve MV E Ohibhlxq07.0cm/sMV E Peak Gr.4mmHg MV DECEL [id number] A Gfserhpi865.5cm/s MV E Mean Gr.1mmHgMV [id number] E/A Ratio0.7MV A [id number] MVA (PHT)3.33cm2 TDI Lateral E' P. V7.99cm/sMedial E' P. V5.92cm/s E/Lateral E'9.4E/Medial E'12.7 Tricuspid Valve TR P. Trvfiozg710fv/sRAP [id number] TR Peak Gr.79kiEnEUQY32qhAo LEFT VENTRICLE The left ventricle is normal size. There is mild concentric left ventricular hypertrophy. Left ventri luis systolic function is normal. The Ejection Fraction is 65-70%. There is normal LV segmental wall m otion. The left ventricular diastolic function and filling is normal for age. RIGHT VENTRICLE The right ventricle is normal size. The right ventricular systolic function is normal. ATRIA The left atrium size is normal. The right atrium size is normal. The interatrial septum is intact wit h no evidence for an atrial septal defect or patent foramen ovale as noted on 2-D or Doppler imaging. AORTIC VALVE The aortic valve is moderately sclerotic. Doppler and Color Flow revealed no significant aortic regur gitation. There is no significant aortic valvular stenosis. MITRAL VALVE Mitral annular calcification is mild. The mitral valve leaflets are calcified. There is no mitral mamta ve stenosis. Doppler and Color Flow revealed mild mitral regurgitation. TRICUSPID VALVE The tricuspid valve is normal in structure. Doppler and Color Flow revealed moderate tricuspid regurg itation.There is mild pulmonary hypertension.The PA pressure was estimated at 37 mmHg. There is no tr icuspid valve stenosis. PULMONIC VALVE The pulmonic valve is not well visualized. Doppler and Color Flow revealed no pulmonic valvular regur gitation. There is no pulmonic valvular stenosis. GREAT VESSELS The aortic root is normal in size. The IVC is normal in size and collapses >50% with inspiration. PERICARDIAL EFFUSION There is no evidence of significant pericardial effusion. Critical Notification Critical Value: No <Conclusion> Left ventricle systolic function is normal. The Ejection Fraction is 65-70%. There is normal LV segmental wall motion. The right ventricular systolic function is normal. The right ventricle is normal size. Doppler and Color Flow revealed moderate tricuspid regurgitation.There is mild pulmonary hypertension .The PA pressure was estimated at 37 mmHg.
[2016-07-11] MEDS ORDERED: POTASSIUM CHLORIDE 20 MEQ TABLET.ER. PO ONE (15:45)
[2016-07-11 19:15] VITALS: BP 124/59
[2016-07-11] MEDS ORDERED: rOPINIRole 0.25 MG TABLET. PO SCH (21:00)
[2016-07-11] MEDS: APIXABAN 5 MG TABLET. PO SCH (21:15)
[2016-07-11] MEDS: FAMOTIDINE 20 MG TABLET. PO SCH (21:16)
[2016-07-11] MEDS: traZODone 100 MG TABLET. PO SCH (21:16)
[2016-07-11 22:25] VITALS: BP 121/55
[2016-07-12 03:00] VITALS: BP 109/55
[2016-07-12 03:45] LABS: BASO % 1 % (0-3); EOS % 5 % (0-3); HEMATOCRIT 30.4 % (36.0-47.0); HEMOGLOBIN 9.7 g/dL (12.0-15.5); LYMPH # 1.5 x10^3/uL (1.0-4.8); LYMPH % 36 % (24-48); MEAN CORPUSCULAR HEMOGLOBIN 28 pg (25-35); MEAN CORPUSCULAR HGB CONC 32 g/dL (31-37); MEAN CORPUSCULAR VOLUME 88 fL (79-100); MONO % 10 % (0-9); NEUT % 48 % (31-73); PLATELET COUNT 286 x10^3/uL (140-400); RED BLOOD COUNT 3.48 x10^6/uL (3.50-5.40); RED CELL DISTRIBUTION WIDTH 17.3 % (11.5-14.5); WHITE BLOOD COUNT 4.2 x10^3/uL (4.0-11.0)
[2016-07-12 04:11] LABS: CALCIUM 8.4 mg/dL (8.5-10.1); CREATININE 0.8 mg/dL (0.6-1.0); GFR 67.7; POTASSIUM 4.3 mmol/L (3.5-5.1)
[2016-07-12 07:00] VITALS: BP 138/63
[2016-07-12] MEDS: LEVOTHYROXINE 50 MCG TABLET PO SCH (07:00)
[2016-07-12] MEDS: buPROPion XL 150 MG TAB.ER.24H PO SCH (08:40)
[2016-07-12] MEDS: ASPIRIN ENTERIC COATED 81 MG TABLET.DR. PO SCH (08:40)
[2016-07-12] MEDS: APIXABAN 5 MG TABLET. PO SCH (08:41)
[2016-07-12] MEDS: ESCITALOPRAM 10 MG TABLET. PO SCH (08:41)
[2016-07-12] MEDS ORDERED: APIX5TAB PO ×5 (09:42→15:33)
--- NOTE | 2016-07-12 09:48 | PDOC3 ---
Discharge Summary Visit Information Date of Admission: Jul 09, 2016 Date of Discharge: Jul 12, 2016 Admitting Diagnosis: angina Final Diagnosis PE - not provoked depression w/ insomnia, p hypothyroid, GERD Problems Medical Problems: (1) Angina effort Status: Acute (2) Pulmonary embolism Status: Acute Brief Hospital Course Allergies Allergies Coded Allergies Type Severity Reaction Last Updated Verified Penicillins Allergy Severe Anaphylaxis 03/17/15 Yes codeine Allergy Severe Anaphylaxis 03/17/15 Yes Vital Signs Vital Signs Date Time Temp Pulse Resp B/P Pulse Ox O2 Delivery O2 Flow Rate FiO2 07/12/16 07:30 Room Air 07/12/16 07:00 97.9 58 18 138/63 97 97.9 Lab Results Laboratory Tests Test 07/11/16 05:00 07/11/16 13:50 07/12/16 03:00 07/12/16 03:05 White Blood Count 4.2x10^3/uL (4.0-11.0) 4.2x10^3/uL (4.0-11.0) Red Blood Count 3.59x10^6/uL (3.50-5.40) 3.48x10^6/uL (3.50-5.40) Hemoglobin 9.9g/dL (12.0-15.5) 9.7g/dL (12.0-15.5) Hematocrit 30.8% (36.0-47.0) 30.4% (36.0-47.0) Mean Corpuscular Volume 86fL (79-100) 88fL (79-100) Mean Corpuscular Hemoglobin 28pg (25-35) 28pg (25-35) Mean Corpuscular Hemoglobin Concent 32g/dL (31-37) 32g/dL (31-37) Red Cell Distribution Width 17.0% (11.5-14.5) 17.3% (11.5-14.5) Platelet Count 312x10^3/uL (140-400) 286x10^3/uL (140-400) Neutrophils (%) (Auto) 46% (31-73) 48% (31-73) Lymphocytes (%) (Auto) 39% (24-48) 36% (24-48) Monocytes (%) (Auto) 10% (0-9) 10% (0-9) Eosinophils (%) (Auto) 5% (0-3) 5% (0-3) Basophils (%) (Auto) 1% (0-3) 1% (0-3) Neutrophils # (Auto) 1.9x10^3uL (1.8-7.7) 2.0x10^3uL (1.8-7.7) Lymphocytes # (Auto) 1.6x10^3/uL (1.0-4.8) 1.5x10^3/uL (1.0-4.8) Monocytes # (Auto) 0.4x10^3/uL (0.0-1.1) 0.4x10^3/uL (0.0-1.1) Eosinophils # (Auto) 0.2x10^3/uL (0.0-0.7) 0.2x10^3/uL (0.0-0.7) Basophils # (Auto) 0.0x10^3/uL (0.0-0.2) 0.0x10^3/uL (0.0-0.2) Sodium Level 144mmol/L (136-145) 146mmol/L (136-145) Potassium Level 3.3mmol/L (3.5-5.1) 4.3mmol/L (3.5-5.1) Chloride Level 109mmol/L (98-107) 110mmol/L (98-107) Carbon Dioxide Level 28mmol/L (21-32) 28mmol/L (21-32) Anion Gap 7 (6-14) 8 (6-14) Blood Urea Nitrogen 21mg/dL (7-20) 20mg/dL (7-20) Creatinine 0.7mg/dL (0.6-1.0) 0.8mg/dL (0.6-1.0) Estimated GFR (Cockcroft-Gault) 79.0 67.7 Glucose Level 94mg/dL (70-99) 92mg/dL (70-99) Calcium Level 8.5mg/dL (8.5-10.1) 8.4mg/dL (8.5-10.1) Prothrombin Time 12.9SEC (11.7-14.0) Prothromb Time International Ratio 1.0 (0.8-1.1) Laboratory Tests Test 07/11/16 13:50 07/12/16 03:00 07/12/16 03:05 Prothrombin Time 12.9SEC (11.7-14.0) Prothromb Time International Ratio 1.0 (0.8-1.1) White Blood Count 4.2x10^3/uL (4.0-11.0) Red Blood Count 3.48x10^6/uL (3.50-5.40) Hemoglobin 9.7g/dL (12.0-15.5) Hematocrit 30.4% (36.0-47.0) Mean Corpuscular Volume 88fL (79-100) Mean Corpuscular Hemoglobin 28pg (25-35) Mean Corpuscular Hemoglobin Concent 32g/dL (31-37) Red Cell Distribution Width 17.3% (11.5-14.5) Platelet Count 286x10^3/uL (140-400) Neutrophils (%) (Auto) 48% (31-73) Lymphocytes (%) (Auto) 36% (24-48) Monocytes (%) (Auto) 10% (0-9) Eosinophils (%) (Auto) 5% (0-3) Basophils (%) (Auto) 1% (0-3) Neutrophils # (Auto) 2.0x10^3uL (1.8-7.7) Lymphocytes # (Auto) 1.5x10^3/uL (1.0-4.8) Monocytes # (Auto) 0.4x10^3/uL (0.0-1.1) Eosinophils # (Auto) 0.2x10^3/uL (0.0-0.7) Basophils # (Auto) 0.0x10^3/uL (0.0-0.2) Sodium Level 146mmol/L (136-145) Potassium Level 4.3mmol/L (3.5-5.1) Chloride Level 110mmol/L (98-107) Carbon Dioxide Level 28mmol/L (21-32) Anion Gap 8 (6-14) Blood Urea Nitrogen 20mg/dL (7-20) Creatinine 0.8mg/dL (0.6-1.0) Estimated GFR (Cockcroft-Gault) 67.7 Glucose Level 92mg/dL (70-99) Calcium Level 8.4mg/dL (8.5-10.1) Brief Hospital Course Ms. Walker is a 89 old admti with nausea, chest pressure and shortness of breath difficulty with deep inspiration, fullness in her chest. Initial evaluation in the ER was suspicious for possible angina. CT of the chest showed pulmonary embolism started on lovenox, transition to ELiquis Discharge Information Condition at Discharge: Improved Follow Up: Weeks Disposition/Orders: D/C to Home Scheduled Apixaban (Eliquis) 5 MG PO BID Aspirin (Aspirin) 81 MG PO DAILY (Reported) Atorvastatin Calcium (Atorvastatin Calcium) 40 MG PO HS (Reported) Bupropion Hcl (Wellbutrin Xl) 150 MG PO DAILY (Reported) Escitalopram Oxalate (Escitalopram Oxalate) 10 MG PO DAILY (Reported) Levothyroxine Sodium (Levothyroxine Sodium) 50 MCG PO DAILYAC (Reported) Ropinirole Hcl (Requip) 0.5 MG PO BID (Reported) Trazodone Hcl (Trazodone Hcl) 100 MG PO HS (Reported) Scheduled PRN Tramadol Hcl (Tramadol Hcl) 50 MG PO PRN Q8HRS PRN PRN PAIN (Reported) Miscellaneous Medications Levothyroxine Sodium (Synthroid) 50 MCG PO (Reported) Patient Instructions Patient Instructions time > 30 min f/u Dr. Keara Fernandez < 2 weeks reschedule colonoscopy for a few months, when Eliquis can be stopped for a few days BRISSA GONZALES MD Jul 12, 2016 09:48
[2016-07-12 11:00] VITALS: BP 135/60
--- NOTE | 2016-07-12 13:15 | PDOC ---
PULMONARY PROGRESS NOTES Subjective no increase soa Vitals Vital Signs Date Time Temp Pulse Resp B/P Pulse Ox O2 Delivery O2 Flow Rate FiO2 07/12/16 11:00 98.1 61 18 135/60 98 Room Air 98.1 ROS: No Nausea, No Chest Pain, No Abdominal Pain, No Increase Cough General: Alert Lungs: Clear Cardiovascular: S1, S2 Abdomen: Soft, Non-tender Neuro Exam: Alert Extremities: No Edema Skin: Warm Labs Laboratory Tests Test 07/11/16 05:00 07/11/16 13:50 07/12/16 03:00 07/12/16 03:05 White Blood Count 4.2x10^3/uL (4.0-11.0) 4.2x10^3/uL (4.0-11.0) Red Blood Count 3.59x10^6/uL (3.50-5.40) 3.48x10^6/uL (3.50-5.40) Hemoglobin 9.9g/dL (12.0-15.5) 9.7g/dL (12.0-15.5) Hematocrit 30.8% (36.0-47.0) 30.4% (36.0-47.0) Mean Corpuscular Volume 86fL (79-100) 88fL (79-100) Mean Corpuscular Hemoglobin 28pg (25-35) 28pg (25-35) Mean Corpuscular Hemoglobin Concent 32g/dL (31-37) 32g/dL (31-37) Red Cell Distribution Width 17.0% (11.5-14.5) 17.3% (11.5-14.5) Platelet Count 312x10^3/uL (140-400) 286x10^3/uL (140-400) Neutrophils (%) (Auto) 46% (31-73) 48% (31-73) Lymphocytes (%) (Auto) 39% (24-48) 36% (24-48) Monocytes (%) (Auto) 10% (0-9) 10% (0-9) Eosinophils (%) (Auto) 5% (0-3) 5% (0-3) Basophils (%) (Auto) 1% (0-3) 1% (0-3) Neutrophils # (Auto) 1.9x10^3uL (1.8-7.7) 2.0x10^3uL (1.8-7.7) Lymphocytes # (Auto) 1.6x10^3/uL (1.0-4.8) 1.5x10^3/uL (1.0-4.8) Monocytes # (Auto) 0.4x10^3/uL (0.0-1.1) 0.4x10^3/uL (0.0-1.1) Eosinophils # (Auto) 0.2x10^3/uL (0.0-0.7) 0.2x10^3/uL (0.0-0.7) Basophils # (Auto) 0.0x10^3/uL (0.0-0.2) 0.0x10^3/uL (0.0-0.2) Sodium Level 144mmol/L (136-145) 146mmol/L (136-145) Potassium Level 3.3mmol/L (3.5-5.1) 4.3mmol/L (3.5-5.1) Chloride Level 109mmol/L (98-107) 110mmol/L (98-107) Carbon Dioxide Level 28mmol/L (21-32) 28mmol/L (21-32) Anion Gap 7 (6-14) 8 (6-14) Blood Urea Nitrogen 21mg/dL (7-20) 20mg/dL (7-20) Creatinine 0.7mg/dL (0.6-1.0) 0.8mg/dL (0.6-1.0) Estimated GFR (Cockcroft-Gault) 79.0 67.7 Glucose Level 94mg/dL (70-99) 92mg/dL (70-99) Calcium Level 8.5mg/dL (8.5-10.1) 8.4mg/dL (8.5-10.1) Prothrombin Time 12.9SEC (11.7-14.0) Prothromb Time International Ratio 1.0 (0.8-1.1) Laboratory Tests Test 07/11/16 13:50 07/12/16 03:00 07/12/16 03:05 Prothrombin Time 12.9SEC (11.7-14.0) Prothromb Time International Ratio 1.0 (0.8-1.1) White Blood Count 4.2x10^3/uL (4.0-11.0) Red Blood Count 3.48x10^6/uL (3.50-5.40) Hemoglobin 9.7g/dL (12.0-15.5) Hematocrit 30.4% (36.0-47.0) Mean Corpuscular Volume 88fL (79-100) Mean Corpuscular Hemoglobin 28pg (25-35) Mean Corpuscular Hemoglobin Concent 32g/dL (31-37) Red Cell Distribution Width 17.3% (11.5-14.5) Platelet Count 286x10^3/uL (140-400) Neutrophils (%) (Auto) 48% (31-73) Lymphocytes (%) (Auto) 36% (24-48) Monocytes (%) (Auto) 10% (0-9) Eosinophils (%) (Auto) 5% (0-3) Basophils (%) (Auto) 1% (0-3) Neutrophils # (Auto) 2.0x10^3uL (1.8-7.7) Lymphocytes # (Auto) 1.5x10^3/uL (1.0-4.8) Monocytes # (Auto) 0.4x10^3/uL (0.0-1.1) Eosinophils # (Auto) 0.2x10^3/uL (0.0-0.7) Basophils # (Auto) 0.0x10^3/uL (0.0-0.2) Sodium Level 146mmol/L (136-145) Potassium Level 4.3mmol/L (3.5-5.1) Chloride Level 110mmol/L (98-107) Carbon Dioxide Level 28mmol/L (21-32) Anion Gap 8 (6-14) Blood Urea Nitrogen 20mg/dL (7-20) Creatinine 0.8mg/dL (0.6-1.0) Estimated GFR (Cockcroft-Gault) 67.7 Glucose Level 92mg/dL (70-99) Calcium Level 8.4mg/dL (8.5-10.1) Medications Active Scripts Medications Dose Route/Sig Days Date Category Atorvastatin Calcium 40 Mg Tablet 40 Mg PO HS 07/09/16 Reported Escitalopram Oxalate 10 Mg Tablet 10 Mg PO DAILY 07/09/16 Reported Wellbutrin Xl (Bupropion Hcl) 150 Mg Tab.er.24h 150 Mg PO DAILY 07/09/16 Reported Trazodone Hcl 100 Mg Tablet 100 Mg PO HS 07/09/16 Reported Tramadol Hcl 50 Mg Tablet 50 Mg PO PRN Q8HRS PRN 07/09/16 Reported Requip (Ropinirole Hcl) 0.5 Mg Tablet 0.5 Mg PO BID 07/09/16 Reported Levothyroxine Sodium 50 Mcg Tablet 50 Mcg PO DAILYAC 07/09/16 Reported Aspirin 81 Mg Tab.chew 81 Mg PO DAILY 07/09/16 Reported Synthroid (Levothyroxine Sodium) 50 Mcg Tablet 50 Mcg PO 09/25/13 Reported Impression . 1. Acute pulmonary embolism, etiology unclear. No clinical identifiable cause. There is no family history of thrombophilia. 2 NO DVT 3. No known malignancy Plan . 1. Doing well 2. Start Eliqius 10mg BID for one week and than 5mg BID, The patient has not had any recent fall. She is very steady on her feet. She walks on a daily basis. 3. I also recommend some screening tests such as mammography and colonoscopy. 4. Follow up with Dr Atkins on August 25, CTA prior to visit. May need 3-6 months of ANA CRISTINA ADAIR MD Jul 12, 2016 13:15
[2016-07-12] MEDS ORDERED: ASPI81TA9 PO (15:33)
[2016-07-12] MEDS ORDERED: ROPI0.25 PO (15:33)
[2016-07-12] MEDS ORDERED: TRAZ100T12 PO (15:33)
[2016-07-12] MEDS ORDERED: ESCI10TA PO (15:33)
[2016-07-12] MEDS ORDERED: TRAM50TA PO (15:33)
[2016-07-12] MEDS ORDERED: LEVO50TA5 PO (15:33)
== END 2016-07-12 15:49 | disposition home or self-care (01) | DRG 176 ==
LOC: ER 12:42 → 2 NORTH 15:05
PROVIDERS: ADMIT Internal Medicine; ATTEND Internal Medicine
DX: I26.99 Other pulmonary embolism without acute cor pulmonale (principal); E03.9 Hypothyroidism, unspecified; F32.9 Major depressive disorder, single episode, unspecified; G25.81 Restless legs syndrome; G47.00 Insomnia, unspecified; I20.9 Angina pectoris, unspecified; I45.10 Unspecified right bundle-branch block; K21.9 Gastro-esophageal reflux disease without esophagitis; M19.90 Unspecified osteoarthritis, unspecified site; F41.9 Anxiety disorder, unspecified; R55 Syncope and collapse; Z82.49 Family history of ischemic heart disease and other diseases of the circulatory system; Z88.0 Allergy status to penicillin; Z88.5 Allergy status to narcotic agent
CPT/HCPCS: 36415; 71010; 71275; 80048; 84484; 85027; 85379; 85610; 93005; 93306; 93970; J1650; J2405; Q9967; 99285-25

== ENCOUNTER → 2016-08-20 | Outpatient (CLI) | payer MEDICARE ==
[~2016-08-20] MED LIST changes: +APIX5TAB PO; +ASPI81TA2 PO; +ASPI81TA9 PO; +ATOR40TA59 PO; +BUPR150T15 PO; +CONTRAST GIVEN MC PRN; +ESCI10TA PO; +IOHEXOL 300 MG/ML 75 ML VIAL IV ONE; +LEVO50TA5 PO; +ROPI0.25 PO; +ROPI0.5T PO; +TRAM50TA PO; +TRAZ100T12 PO
--- NOTE | 2016-08-20 13:12 | RAD ---
CTA of the chest with contrast (pulmonary embolism protocol) 08/20/2016 Clinical History: Chest pain. History of recent pulmonary emboli.. Technique: After the intravenous administration of 75 mL of Isovue-370, contiguous, 2 mm axial sections were obtained through the chest. 3-D MIP coronal and sagittal reconstructed images were obtained. One or more of the following individualized dose reduction techniques were utilized for this study: 1. Automated exposure control. 2. Adjustment of the mA and/or kV according to patient size. 3. Use of iterative reconstruction technique. Findings: Comparison study is dated 07/09/2016. The small filling defects seen involving branches of the right middle lobe and right lower lobe pulmonary arteries on the previous examination have resolved. No acute pulmonary embolism is seen. The heart is mildly enlarged. Atherosclerotic calcification of the thoracic aorta and its branches to include coronary arteries is noted. The thoracic aorta is tortuous but tapers normally. There is a moderate to large sized hiatal hernia. Apical pleural thickening and scarring is seen bilaterally. There is associated areas of pleural calcification. These findings are unchanged. Small calcified granulomas are seen involving both lungs. Minimal dependent subsegmental atelectasis is noted. No area of consolidation is seen. No pleural effusion or pneumothorax is noted. Images through the upper abdomen are unchanged. The osseous structures are unchanged. Impression: The small filling defects within the right lower lobe and right middle lobe pulmonary arteries seen on the previous examination have resolved. No acute pulmonary embolus is seen.
== END | disposition home or self-care (01) ==
LOC: CT 09:58
PROVIDERS: ATTEND Internal Medicine Critical Care Medicine
DX: R07.9 Chest pain, unspecified (principal); Z86.711 Personal history of pulmonary embolism
CPT/HCPCS: 71275; Q9967

== ENCOUNTER → 2017-01-18 | Outpatient (CLI) | payer MEDICARE ==
[~2017-01-18] MED LIST changes: +ASPI-612 PO; +ASPI-630 PO; -ASPI81TA2 PO; -ASPI81TA9 PO; -CALC500T50 PO; +CALC500T54 PO; -CONTRAST GIVEN MC PRN; -ESCI10TA PO; +ESCITALOPRAM OX10 MG PO; -IOHEXOL 300 MG/ML 75 ML VIAL IV ONE
[2017-01-18 16:02] LABS: PROTHROMBIN TIME PATIENT 12.4 SEC (11.7-14.0)
== END | disposition home or self-care (01) ==
LOC: LAB 14:01
PROVIDERS: ATTEND Internal Medicine Pulmonary Disease
DX: I26.01 Septic pulmonary embolism with acute cor pulmonale (principal)
CPT/HCPCS: 83090; 85384; 85610; 85670; 85730